=== PATIENT | male | born 1955 | race Caucasian/White ===

== ENCOUNTER → 2018-02-06 | Outpatient (CLI) | payer OTHER | END | disposition home or self-care (01) | LOC: LABPAT 17:13 | PROVIDERS: ATTEND Orthopaedic Surgery | DX: Z01.812 Encounter for preprocedural laboratory examination (principal) | CPT/HCPCS: 87070 ==

== ENCOUNTER 2018-02-13 05:40 | Day surgery (SDC) | payer OTHER ==
[2018-02-10 11:41] VITALS: BMI 32.3
--- NOTE | 2018-02-12 17:12 | HP ---
HISTORY AND PHYSICAL REASON FOR ADMISSION: Surgery is 02/13/2018. Stuart Julian is a 62-year-old patient seen with symptomatic left knee osteoarthritis. We discussed treatment options. He elected to proceed with left total knee arthroplasty. Consent regarding the procedure was obtained. Medical clearance was provided by Dr. Mari Elizalde. PAST MEDICAL HISTORY: Hypertension. PAST SURGICAL HISTORY: Left knee arthroscopy. MEDICATIONS: Amlodipine, losartan, Toprol. ALLERGIES: CLINORIL. SOCIAL HISTORY: Patient smokes half pack cigarettes daily. PHYSICAL EXAMINATION: Evaluation of the left knee is range of motion is negative to 120 degrees. There is tenderness along the medial joint line. There is a crepitus along the medial patellofemoral compartments range of motion. There is pain with patellofemoral compression. Ligaments stable. Hip rotation without pain. Distal neurovascular exam is intact. RADIOGRAPHS: Radiographs of the left knee reveal severe medial moderate to severe patellofemoral compartment osteoarthritis. IMPRESSION: 1. Left knee osteoarthritis. 2. Hypertension. 3. Tobacco use. PLAN: Left total knee arthroplasty. Surgery scheduled for 02/13/2018. MMODL / IJN: [id number] /
[~2018-02-13 05:40] MED LIST: ACETAMINOPHEN TAB 500 MG TAB PO ONE; DEXAMETHASONE SOD PHOSPHATE 10 MG/ML 1 ML VIAL IV ONE; LACTATED RINGERS 1,000 ML IV SCH; LIDOCAINE 1% 20 ML VIAL (10MG/ML) FOR IV START INTRADERMA PRN; MIDAZOLAM (PF) 2 MG/2 ML VIAL IV PRN; ONDANSETRON 4 MG/2 ML VIAL IVP ONE; TRANEXAMIC ACID 1,000 MG in SODIUM CHLORIDE 0.9% 50 ML IVPB ONE; ceFAZolin IN SWFI 2 GM/20 ML SYRINGE IVP ONE; fentaNYL (PF) 50 MCG/ML 2 ML AMP IV PRN
[2018-02-13] MEDS ORDERED: SUCCINYLCHOLINE CHLORIDE 100 MG/5 ML SYR IV ONE (07:27)
[2018-02-13] MEDS ORDERED: ROCURONIUM BROMIDE 10 MG/ML 10 ML VIAL IV ONE (07:27)
[2018-02-13] MEDS ORDERED: LIDOCAINE 1% INJ 10MG/ML (20 ML MDV) ONE (07:27)
[2018-02-13] MEDS ORDERED: NEOSTIGMINE 1 MG/ML 10 ML VIAL ONE (07:27)
[2018-02-13] MEDS ORDERED: MIDAZOLAM 2 MG/2 ML VIAL ONE (07:27)
[2018-02-13] MEDS ORDERED: GLYCOPYRROLATE 0.2 MG/ML 2 ML VIAL ONE (07:27)
[2018-02-13] MEDS ORDERED: HYDROmorphone (PF) 1 MG/ML ONE (07:27)
[2018-02-13] MEDS ORDERED: fentaNYL (PF) 50 MCG/ML 2 ML AMP ONE (07:27)
[2018-02-13] MEDS ORDERED: PROPOFOL 10 MG/ML 20 ML VIAL IV ONE (07:27)
[2018-02-13] MEDS ORDERED: ROPIVACAINE 246.25 MG, EPINEPHrine 0.5 MG, KETOROLAC 30 MG, cloNIDine HCL/PF 80 MCG, WA... MISCELLANE ONE ×5 (07:32)
[2018-02-13] MEDS ORDERED: ceFAZolin 3,000 MG in SODIUM CHLORIDE 0.9% IRRIGATIO 3,000 ML IRRIGATION ONE (08:12)
[2018-02-13] MEDS ORDERED: LACTATED RINGERS 1,000 ML IV ONE (09:13)
[2018-02-13] MEDS ORDERED: ONDANSETRON 4 MG/2 ML VIAL IVP PRN (09:29)
[2018-02-13] MEDS ORDERED: HYDROcodone/APAP 5-325MG 1 EACH TAB PO PRN ×2 (09:29)
[2018-02-13] MEDS ORDERED: HYDROmorphone 1 MG/ML 1 ML SYRINGE IVP PRN (09:29)
[2018-02-13] MEDS ORDERED: NALOXONE 0.4 MG/ML 1 ML VIAL IV PRN (09:29)
[2018-02-13] MEDS ORDERED: HYDROmorphone 0.5 MG/0.5 ML SYRINGE IVP PRN ×2 (09:29)
--- NOTE | 2018-02-13 09:29 | P.OP ---
Date of Procedure: 02/13/18 Preoperative Diagnosis: Left knee osteoarthritis Postoperative Diagnosis: Left knee osteoarthritis Procedure(s) Performed: Left total knee arthroplasty Implants: 1. Katelyn Attune size 8 left cruciate-retaining cemented femur 2. [place] Attune size 8 fixed bearing cemented tibial baseplate 3. Katelyn Attune size 8 5 mm fixed bearing polyethylene tibial insert 4. Katelyn Attune 41 mm all polyethylene cemented patella Anesthesia: GETA, regional (Adductor canal catheter), local Surgeon: Marcos Mendoza Vice President Of Development #1: Leonel Del Rosario Estimated Blood Loss (ml): 50 Pathology: other (Bone) Condition: stable Disposition: PACU Indications for Procedure: 62-year-old patient seen with progressive left knee pain. After treatment options discussed, he elected to proceed with total knee arthroplasty. Operative Findings: see description of procedure Description of Procedure: Patient was taken to the operative suite after having an adductor canal catheter placed by the department of anesthesia. Patient underwent a general anesthetic by the department of anesthesia. Patient was given preoperative IV intake antibiotics and TXA. A well-padded tourniquet was placed about the left lower extremity. The lower extremity was then prepped and draped in the normal sterile orthopedic fashion. The extremity was elevated, a tourniquet was insufflated to 300. A standard anterior incision was made sharply through skin. Dissection was taken down through the subcutaneous soft tissues down to the extensor mechanism. A medial arthrotomy was performed, patella was everted and knee was flexed. There was advanced osteoarthritis noted. I introduced my distal intramedullary femoral drill. I then introduced the distal femoral cutting jig. Greg LAM secured the cutting jig with 2 pins. I held retractors in position while Greg LAM performed the distal femoral resection through the guide area we now removed her distal femoral cutting guide. We now placed our 4-in-1 femoral cutting block and positioned and it was secured with 2 pins by Greg LAM while I held the block in position. The distal femoral finishing was now completed. A proximal tibial cutting guide was positioned. I held the guide in the appropriate position with both hands well Greg LAM inserted stabilizing pins into the guide. Proximal tibial cut was made. We now placed a trial femoral component into position, along with an appropriate size tibial tray and insert. We now took the knee through range of motion and had full extension good flexion and good overall soft tissue balance noted. The patella was everted and stabilized with 2 towel clips held by Greg LAM while I performed a flush with patellar quad tendon utilizing a fresh sawblade. We templated the patella, appropriate drill holes were made. An appropriate trial patella was positioned, knee was taken through full range of motion with the patella tracking very nicely. The trial patella was removed. Drill holes were made through the femoral component. All trial components were removed after marking off the appropriate rotation of the tibia. Retractors were now positioned along the proximal tibia. An appropriate keel punch was made with the appropriate size tibial guide by myself on Greg LAM assisted by holding retractors. At this point appropriate size implants were chosen and opened. The joint was irrigated copiously with pulse lavage mechanical irrigation. The posterior capsule was infiltrated with local analgesic. The wound was irrigated with pulse lavage mechanical irrigation. We mixed antibiotic methylmethacrylate. We placed the knee into flexion. We placed multiple retractors assisted by Greg LAM to expose the proximal tibia. Once the methyl methacrylate was ready, the tibial component was cemented into place removing any excess methylmethacrylate form by both myself and Greg LAM. The femoral component was cemented into place removing the removing any excess methylmethacrylate performed by both myself and Greg LAM. We then inserted the appropriate size polyethylene tibial insert. We made sure that it was locked into position. We took the knee into full extension, and then back in a flexion making sure we had removed any excess methylmethacrylate. The patellar component was then cemented down and secured with clamp. Excess methylmethacrylate removed. We kept the knee in full extension, patellar clamp in position until methylmethacrylate had hardened. Once it had hardened the patellar clamp was removed. The knee was taken through full range of motion. The patella tracked nicely. There was good soft tissue balancing. The tourniquet was now released. Additional hemostasis was achieved via electrocautery. A second gram of TXA was given. The wound again was irrigated with pulse lavage mechanical irrigation. The superficial soft tissues were infiltrated local analgesic. The extensor mechanism was repaired with Vicryl. We checked the repair with range of motion and it was stable. The subcutaneous soft tissues were repaired with Vicryl in layers. The skin was approximated with pernio/Dermabond. Sterile dressings were applied followed by loose web roll and Waqar bandage. The patient was transferred to a bed, and taken to recovery in stable and satisfactory condition. Greg LAM assisted with this complex procedure.
[2018-02-13] MEDS ORDERED: LACTATED RINGERS 1,000 ML IV SCH (09:30)
[2018-02-13 10:09] VITALS: TEMP 97.5
[2018-02-13] MEDS ORDERED: ROPIVACAINE 1,100 MG, SODIUM CHLORIDE 0.9% 500 ML 330 ML MISCELLANE PRN ×2 (10:14)
--- NOTE | 2018-02-13 10:32 | XR ---
EXAMINATION TYPE: XR knee limited LT DATE OF EXAM: 02/13/2018 CLINICAL HISTORY: Postoperative evaluation Two views of the left knee are submitted. Identified are changes of total knee arthroplasty with fem oral and tibial components appearing well seated. Postsurgical soft tissue changes are noted. Align ment is anatomic.
[2018-02-13] MEDS ORDERED: HYDROcodone/APAP 7.5-325MG 1 EACH TAB PO ONE (11:58)
[2018-02-13] MEDS ORDERED: ceFAZolin IN SWFI 2 GM/20 ML SYRINGE IVP ONE (13:30)
[2018-02-13 13:48] VITALS: BP 155/74; PULSE 66; RESP 18
--- NOTE | 2018-02-13 20:34 | P.ONQ ---
Anesthesiology Proc Note - PNB - Peripheral Nerve Block Performed Left Adductor Canal Infusion Time Out Performed: Yes Procedure Start Time: 06:53 Procedure Stop Time: 07:00 Indication: Acute Post-Operative Pain, Requested by physician Sedation Type: Sedate with meaningful contact maintained Preparation: Sterile Dressing Position: Supine Catheter: Indwelling Needle Types: On-Q Needle Size: 100mm (4") Needle Gauge: 21 Technique: Ultrasound Injectate: 0.5% Ropivacaine (see comment for volume) (ropi .5% 20cc) Blood Aspirated: No Pain Paresthesia on Injection Noted: No Resistance on Injection: Normal Events: Uneventful and Well Tolerated
== END 2018-02-13 13:54 | disposition home health service (06) ==
LOC: OR 05:40
PROVIDERS: ATTEND Orthopaedic Surgery
DX: M17.12 Unilateral primary osteoarthritis, left knee (principal); I10 Essential (primary) hypertension; J44.9 Chronic obstructive pulmonary disease, unspecified; N40.0 Benign prostatic hyperplasia without lower urinary tract symptoms; M54.16 Radiculopathy, lumbar region; Z87.891 Personal history of nicotine dependence; Z88.6 Allergy status to analgesic agent; Z79.899 Other long term (current) drug therapy
CPT/HCPCS: 97161; 88300; 73560; 27447; C1776; C1713; C1772; J2250 ×2; J0171; J1100; J2710; J2405; J0690 ×2; J2001; J3010; J1885; J1170; J2795; J0330; J2704; J0735

== ENCOUNTER 2018-02-16 08:16 | Emergency (ER) | payer OTHER ==
--- NOTE | 2018-02-16 08:55 | ED ---
General Adult HPI - General Chief complaint: Urogenital Stated complaint: FREQUENT URINATION Time Seen by Provider: 02/16/18 08:47 Source: patient, RN notes reviewed Mode of arrival: ambulatory Limitations: no limitations - History of Present Illness Initial comments: Patient 62-year-old male status post left knee replacement 3 days, presenting to the emergency room today with chief complaint of increased urinary frequency. Patient does admit that he does have a history of BPH. Patient states that after surgery was having difficult time voiding. He states he increase his fluids and started taking Flomax. He states he's been able to void but is only going small amounts and feels that he has to go every 15 minutes. Patient does admit some pressure in the lower abdomen. He states he feels like he is retaining. He denies any other complaints or symptoms. Patient denies any recent fever, chills, shortness of breath, chest pain, back pain, nausea or vomiting, numbness or tingling, dysuria or hematuria, headaches or visual changes, or any other complaints. - Related Data Home Medications Medication Instructions Recorded Confirmed Losartan/Hydrochlorothiazide 1 each PO DAILY 02/10/18 02/10/18 [Losartan-Hctz 100-25 mg Tab] Metoprolol Succinate (ER) [Toprol 100 mg PO DAILY 02/10/18 02/13/18 Xl] Potassium Chloride [Klor-Con 10] 10 meq PO DAILY 02/10/18 02/13/18 amLODIPine [Norvasc] 10 mg PO DAILY 02/10/18 02/10/18 Previous Rx's Medication Instructions Recorded Apixaban [Eliquis] 2.5 mg PO BID #30 tab 02/13/18 Cephalexin [Keflex] 500 mg PO Q6HR #12 cap 02/13/18 Docusate [Colace] 100 mg PO DAILY #30 capsule 02/13/18 HYDROcodone/APAP 7.5-325MG [[place] 1 - 2 each PO Q6HR PRN #56 tab 02/13/18 7.5] traMADol HCl [Ultram] 50 mg PO Q6H PRN #28 tab 02/13/18 Allergies Allergy/AdvReac Type Severity Reaction Status Date / Time sulindac [From Clinoril] Allergy Rash/Hives Verified 02/16/18 08:19 Review of Systems ROS Statement: Those systems with pertinent positive or pertinent negative responses have been documented in the HPI. ROS Other: All systems not noted in ROS Statement are negative. Past Medical History Past Medical History: Hypertension History of Any Multi-Drug Resistant Organisms: None Reported Past Surgical History: Hernia Repair, Joint Replacement, Tonsillectomy Additional Past Surgical History / Comment(s): L knee, Past Psychological History: No Psychological Hx Reported Smoking Status: Former smoker Past Alcohol Use History: None Reported Past Drug Use History: None Reported General Exam - General Exam Comments Initial Comments: General: The patient is awake and alert, in no distress, and does not appear acutely ill. Neck: The neck is supple, there is no tenderness or JVD. Cardiovascular: There is a regular rate and rhythm. No murmur, rub or gallop is appreciated. Respiratory: Lungs are clear to auscultation, respirations are non-labored, breath sounds are equal. No wheezes, stridor, rales, or rhonchi. Gastrointestinal: Soft, non-distended, non-tender abdomen without masses or organomegaly noted. There is no rebound or guarding present. No CVA tenderness. Musculoskeletal: Normal ROM, no tenderness. Neurological: A&O x 3. CN II-XII intact, There are no obvious motor or sensory deficits. Coordination appears grossly intact. Speech is normal. Skin: Skin is warm and dry and no rashes or lesions are noted. Psychiatric: Cooperative, appropriate mood & affect, normal judgment. Limitations: no limitations Course Vital Signs 02/16/18 08:19 Temperature 98.5 F Pulse Rate 74 Respiratory 18 Rate Blood Pressure 137/79 O2 Sat by Pulse 96 Oximetry Medical Decision Making - Medical Decision Making Patient's bladder scan revealed greater than 1 L. Weldon catheter was placed by nursing staff. Patient has had over a liter of output in his Weldon catheter bag. It was clamped off and reopened to have another 2-300 mL of output. Patient is doing well at this time. Will be changed over to a leg bag discharged home with Weldon catheter to follow-up with his urologist. He states he seen Dr. Cunningham in the past. - Lab Data Lab Results 02/16/18 Range/Units 09:05 Urine Color Yellow Urine Appearance Clear (Clear) Urine pH 6.5 (5.0-8.0) Ur Specific [place] 1.009 (1.001-1.035) Urine Protein 1+ H (Negative) Urine Glucose (UA) Negative (Negative) Urine Ketones Trace H (Negative) Urine Blood Negative (Negative) Urine Nitrite Negative (Negative) Urine Bilirubin Negative (Negative) Urine Urobilinogen <2.0 (<2.0) mg/dL Ur Leukocyte Esterase Negative (Negative) Urine RBC 1 (0-5) /hpf Urine WBC 1 (0-5) /hpf Urine Mucus Rare H (None) /hpf Disposition Clinical Impression: Urinary retention Disposition: HOME SELF-CARE Condition: Good Instructions: Urinary Retention in Men (ED) Additional Instructions: Please leave Weldon catheter in place until follow-up with urologist over the next 2-5 days. Return here to the emergency room if any symptoms increase or worsen or for any other concerns. Is patient prescribed a controlled substance at d/c from ED?: No Referrals: Will Elizalde MD [Primary Care Provider] - 1-2 days Jair Cunningham MD [STAFF PHYSICIAN] - 1-2 days Time of Disposition: 10:10
[2018-02-16 09:22] LABS: Appearance,Urine Clear (Clear); Bilirubin,Urine Negative (Negative); Blood,Urine Negative (Negative); Color,Urine Yellow; Glucose,Urine (UA) Negative (Negative); Ketones,Urine Trace (Negative); Leukocyte Esterase,Urine Negative (Negative); Mucus,Urine Rare /hpf; Nitrite,Urine Negative (Negative); PH, Urine 6.5 (5.0-8.0); Protein,Urine 1+ (Negative); RBC,Urine 1 /hpf (0-5); Specific Gravity,Urine 1.009 (1.001-1.035); Urobilinogen,Urine <2.0 mg/dL (<2.0); WBC,Urine 1 /hpf (0-5)
[2018-02-16 10:53] VITALS: BP 146/89; PULSE 87; RESP 20; TEMP 97.9
== END 2018-02-16 10:53 | disposition home or self-care (01) ==
LOC: EC 08:16
DX: R33.8 Other retention of urine (principal); N40.1 Benign prostatic hyperplasia with lower urinary tract symptoms; R35.0 Frequency of micturition; I10 Essential (primary) hypertension; Z87.891 Personal history of nicotine dependence; Z88.6 Allergy status to analgesic agent; Z79.899 Other long term (current) drug therapy; Z96.652 Presence of left artificial knee joint
CPT/HCPCS: 51702; 51798; 81001; 87086; 99284

== ENCOUNTER 2018-04-17 13:02 | Emergency (ER) | payer OTHER ==
[2018-04-17] MEDS ORDERED: HYDROcodone/APAP 5-325MG 1 EACH TAB PO STA (13:41)
--- NOTE | 2018-04-17 13:45 | ED ---
Lower Extremity Injury HPI - General Chief Complaint: Extremity Injury, Lower Stated Complaint: knee pain Time Seen by Provider: 04/17/18 13:33 Source: patient, EMS, RN notes reviewed Mode of arrival: EMS Limitations: physical limitation - History of Present Illness Initial Comments: 62-year-old male presents emergency Department chief complaint of left knee pain. Patient states that he had knee replacement [address] Mendoza. Patient states symptoms ice and states he felt like he hyperextended his knee or twisted it. Patient states she did not feel that it shifted though. Patient denies any paresthesias he does admit to increased swelling and discomfort. Patient denies any major head trauma, upper back or neck pain. Patient states her complaint is left knee pain. - Related Data Home Medications Medication Instructions Recorded Confirmed Losartan/Hydrochlorothiazide 1 each PO DAILY 02/10/18 04/17/18 [Losartan-Hctz 100-25 mg Tab] Metoprolol Succinate (ER) [Toprol 100 mg PO DAILY 02/10/18 04/17/18 Xl] amLODIPine [Norvasc] 10 mg PO DAILY 02/10/18 04/17/18 Finasteride [Proscar] 5 mg PO DAILY 04/17/18 04/17/18 Hydrocodone/Acetaminophen [Coffeen 1 tab PO Q6HR PRN 04/17/18 04/17/18 5-325] Ibuprofen [Motrin] 600 mg PO Q6HR PRN 04/17/18 04/17/18 Allergies Allergy/AdvReac Type Severity Reaction Status Date / Time sulindac [From Clinoril] Allergy Rash/Hives Verified 04/17/18 13:45 Review of Systems ROS Statement: Those systems with pertinent positive or pertinent negative responses have been documented in the HPI. ROS Other: All systems not noted in ROS Statement are negative. Past Medical History Past Medical History: Hypertension History of Any Multi-Drug Resistant Organisms: None Reported Past Surgical History: Hernia Repair, Joint Replacement, Tonsillectomy Additional Past Surgical History / Comment(s): L knee, Past Psychological History: No Psychological Hx Reported Smoking Status: Former smoker Past Alcohol Use History: None Reported Past Drug Use History: None Reported General Exam Limitations: physical limitation General appearance: alert, in no apparent distress Neck exam: Present: normal inspection, full ROM. Absent: tenderness, meningismus, lymphadenopathy Respiratory exam: Present: normal lung sounds bilaterally. Absent: respiratory distress, wheezes, rales, rhonchi, stridor Cardiovascular Exam: Present: regular rate, normal rhythm, normal heart sounds. Absent: systolic murmur, diastolic murmur, rubs, gallop, clicks Extremities exam: Present: other (Left knee there is moderate swelling, surgical scar noted well healed no erythema patient's legs neurovascular intact there is no focal tenderness that he has pain with range of motion of hip pain no left distal leg pain) Neurological exam: Present: alert, oriented X3, CN II-XII intact, reflexes normal. Absent: motor sensory deficit Skin exam: Present: warm, dry, intact, normal color. Absent: rash Course Vital Signs 04/17/18 04/17/18 13:12 14:03 Temperature 97.8 F Pulse Rate 69 72 Respiratory 18 18 Rate Blood Pressure 161/98 146/92 O2 Sat by Pulse 98 96 Oximetry - Reevaluation(s) Reevaluation #1: 04/17/18 14:45 Patient did not want IM injection IV injection of pain medications. Medical Decision Making - Medical Decision Making 62-year-old male presented to emergency Department for fall, left knee pain. Patient has acute fracture on the lateral prosthetic region. Case discussed with his orthopedic physician who recommends knee immobilizer and follow-up tomorrow with the clinic. Disposition Clinical Impression: Femur fracture, left Disposition: HOME SELF-CARE Condition: Stable Instructions (If sedation given, give patient instructions): Leg Fracture (ED) Additional Instructions: Please return to the Emergency Department if symptoms worsen or any other concerns. Is patient prescribed a controlled substance at d/c from ED?: No Referrals: Will Elizalde MD [Primary Care Provider] - 1-2 days Marcos Mendoza DO [Doctor of Osteopathic Medicine] - 1-2 days Time of Disposition: 15:07
--- NOTE | 2018-04-17 14:38 | XR ---
EXAMINATION TYPE: XR knee complete LT DATE OF EXAM: 04/17/2018 COMPARISON: 02/13/2018 HISTORY: 62-year-old male left knee pain after fall TECHNIQUE: 3 views FINDINGS: Images show left total knee arthroplasty. There is a bone fragment along the lateral aspect of the la teral femoral condyle appears displaced approximately 1.9 cm superiorly. Overlying soft tissue swelli ng. Underlying large knee joint effusion with anterior bulging of the extensor mechanism. Alignment g rossly anatomic. IMPRESSION: 1. Lateral sided periprosthetic fracture about the distal femoral component. Overlying soft tissue sw elling. 2. Large knee joint effusion.
[2018-04-17 15:29] VITALS: BP 127/82; PULSE 65; RESP 16; TEMP 97.3
== END 2018-04-17 15:28 | disposition home or self-care (01) ==
LOC: EC 13:02
DX: S72.402A Unspecified fracture of lower end of left femur, initial encounter for closed fracture (principal); M97.12XA Periprosthetic fracture around internal prosthetic left knee joint, initial encounter; I10 Essential (primary) hypertension; Z96.652 Presence of left artificial knee joint; Z87.891 Personal history of nicotine dependence; Z79.899 Other long term (current) drug therapy; Z88.6 Allergy status to analgesic agent; W00.0XXA Fall on same level due to ice and snow, initial encounter; Y92.89 Other specified places as the place of occurrence of the external cause
CPT/HCPCS: 73562; 99283; L1830

== ENCOUNTER 2018-04-21 14:20 | Day surgery (SDC) | payer OTHER ==
--- NOTE | 2018-04-20 10:57 | HP ---
HISTORY AND PHYSICAL REASON FOR ADMISSION: Surgery is 04/21/2018 Stuart Julian is a 62-year-old patient seen after a traumatic injury to his left knee. He was found to have a displaced lateral femoral condylar fracture. He has a history of total knee arthroplasty on 02/13/2018, which appears stable radiographically. I recommended open reduction and internal fixation of the lateral femoral condyle fracture. I discussed the procedure, risks, complications, and recovery. He was agreeable. Consent was obtained. PAST MEDICAL HISTORY: Hypertension. PAST SURGICAL HISTORY: Left total knee arthroplasty. MEDICATIONS: Amlodipine, losartan, Toprol, [place]. ALLERGIES: CLINORIL. SOCIAL HISTORY: He smokes 1/2 pack cigarettes daily. PHYSICAL EXAMINATION: Evaluation of the left knee: His range of motion is limited. His incision is well healed. He is tender along the lateral femoral condyle area. Homans and Francesco are negative. His distal neurovascular exam is intact. RADIOGRAPHS: Radiographs of the left knee revealed a lateral femoral condyle fracture with a stable- appearing total knee arthroplasty. IMPRESSION: 1. Left knee lateral femoral condyle periprosthetic fracture. 2. Left total knee arthroplasty. 3. Hypertension. 4. Tobacco use. PLAN: Open reduction, internal fixation left knee lateral femoral condyle fracture. Surgery scheduled for 04/21/2018. MMODL / IJN: [id number] /
[~2018-04-21 14:20] MED LIST changes: -ACETAMINOPHEN TAB 500 MG TAB PO ONE; -DEXAMETHASONE SOD PHOSPHATE 10 MG/ML 1 ML VIAL IV ONE; -LACTATED RINGERS 1,000 ML IV SCH; -LIDOCAINE 1% 20 ML VIAL (10MG/ML) FOR IV START INTRADERMA PRN; -MIDAZOLAM (PF) 2 MG/2 ML VIAL IV PRN; -ONDANSETRON 4 MG/2 ML VIAL IVP ONE; -TRANEXAMIC ACID 1,000 MG in SODIUM CHLORIDE 0.9% 50 ML IVPB ONE; -fentaNYL (PF) 50 MCG/ML 2 ML AMP IV PRN
[2018-04-21] MEDS ORDERED: LACTATED RINGERS 1,000 ML IV ONE ×5 (14:58→17:46)
[2018-04-21] MEDS ORDERED: LIDOCAINE 1% 20 ML VIAL (10MG/ML) FOR IV START INTRADERMA ONE (14:58)
[2018-04-21] MEDS ORDERED: fentaNYL (PF) 50 MCG/ML 2 ML AMP ONE (15:48)
[2018-04-21] MEDS ORDERED: LIDOCAINE 1% INJ 10MG/ML (20 ML MDV) ONE (15:48)
[2018-04-21] MEDS ORDERED: ePHEDrine SULFATE/0.9% NACL/PF 50 MG/5 ML SYRINGE IV ONE (15:48)
[2018-04-21] MEDS ORDERED: MIDAZOLAM 2 MG/2 ML VIAL ONE (15:48)
[2018-04-21] MEDS ORDERED: PROPOFOL 10 MG/ML 20 ML VIAL IV ONE (15:48)
[2018-04-21] MEDS ORDERED: SUCCINYLCHOLINE CHLORIDE 100 MG/5 ML SYR IV ONE (15:48)
[2018-04-21] MEDS ORDERED: ROPIVACAINE 5 MG/ML 30 ML VIAL MISCELLANE ONE (17:02)
[2018-04-21] MEDS ORDERED: HYDROmorphone 0.5 MG/0.5 ML SYRINGE IVP PRN ×2 (17:15)
[2018-04-21] MEDS ORDERED: HYDROcodone/APAP 5-325MG 1 EACH TAB PO PRN (17:15)
[2018-04-21] MEDS ORDERED: SENNOSIDES-DOCUSATE SODIUM 1 EACH TAB PO PRN (17:15)
[2018-04-21] MEDS ORDERED: HYDROmorphone 1 MG/ML 1 ML SYRINGE IVP PRN (17:15)
[2018-04-21] MEDS ORDERED: ONDANSETRON 4 MG/2 ML VIAL IVP PRN (17:15)
--- NOTE | 2018-04-21 17:15 | P.OP ---
Date of Procedure: 04/21/18 Preoperative Diagnosis: Displaced left knee periprosthetic lateral femoral condyle fracture Postoperative Diagnosis: Same Procedure(s) Performed: Open reduction and internal fixation left knee periprosthetic lateral femoral condyle fracture Implants: 2Synthes 60 millimeter 4.0 cannulated screws with washers Anesthesia: CHET local Surgeon: Marcos Mendoza [employer] Instrument Repairer #1: Leonel Del Rosario Estimated Blood Loss (ml): 20 Pathology: none sent Condition: stable Disposition: PACU Indications for Procedure: 62-year-old patient seen with a displaced left knee periprosthetic distal femoral lateral condyle fracture. I recommended open reduction and internal fixation. The patient was agreeable and consent was obtained. Operative Findings: see description of procedure Description of Procedure: The patient was taken to the operative suite. The patient underwent a general anesthetic by the department of anesthesia. Preoperative IV antibiotics were given. A well-padded tourniquet was placed proximal left thigh. The left lower extremity was then prepped and draped in the normal sterile orthopedic fashion. The extremity was elevated and the tourniquet was insufflated. C-arm was brought into the operative field to determine the area of the incision. Once ascertain the air the fracture a lateral incision was made sharply through skin. I made a longitudinal incision through the IT band. A was position to help with retraction. The C-arm was brought in. The fracture was somewhat comminuted. I was able to pull the fracture down in a better position. I then introduced 2 pins crossing the fracture. I checked the construct under AP and lateral operative imaging. We had improved alignment of the fracture. I then chose to60 mm 4.0 cannulated screws with washers partially threaded and introduced them over the guidepins and into the lateral femur which seemed to compress the fracture nicely. The guidepins were removed. We checked the construct under AP and lateral intraoperative imaging and noted adequate alignment of the fracture and adequate positioning of the internal fixation. The wound was irrigated. The IT band was repaired with #1 Vicryl. The subcu soft tissues repaired with 2-0 Vicryl. The skin is proximal skin ronn. I infiltrated the area with half percent plain ropivacaine totaling approximately 20 mL. Sterile dressings were applied. Sterile web roll was applied. The tourniquet was released with immediate capillary refill the extremity noted. Sterile Waqar bandages applied. Patient was placed into a knee immobilizer. The patient was awakened, transferred to a bed and recovery stable condition. Greg LAM assisted procedure.
[2018-04-21] MEDS: HYDROmorphone 1 MG/ML 1 ML SYRINGE IVP ONE ×5 (17:28→17:52)
[2018-04-21] MEDS: HYDROcodone/APAP 5-325MG 1 EACH TAB PO PRN (20:43)
[2018-04-21 22:06] VITALS: BMI 28.8
[2018-04-21] MEDS: LACTATED RINGERS 1,000 ML IV SCH (22:09)
--- NOTE | 2018-04-21 22:21 | FL ---
EXAMINATION TYPE: FL guidance operating room, XR knee limited LT DATE OF EXAM: 04/21/2018 CLINICAL HISTORY: Left knee prosthesis fracture. TECHNIQUE: Fluoroscopy. Limited intraoperative views left knee. COMPARISON: Left knee x-ray from 4 days ago.. FINDINGS: Fluoroscopic guidance was provided during open reduction internal fixation procedure perfo rmed by Dr. Mendoza. A total of approximately 15 seconds of fluoroscopic time was utilized during the procedure and 2 spot intraoperative images are acquired. Intraoperative images acquired show placement of fixating screws through a fracture of the distal lat eral femoral condyle near site of metallic prosthesis. IMPRESSION: As Above.
[2018-04-21] MEDS: ceFAZolin IN SWFI 2 GM/20 ML SYRINGE IVP SCH (23:20)
[2018-04-22] MEDS: LACTATED RINGERS 1,000 ML IV SCH (04:30)
[2018-04-22] MEDS: HYDROcodone/APAP 5-325MG 1 EACH TAB PO PRN ×2 (05:51→13:25)
[2018-04-22 07:46] VITALS: BP 145/86; PULSE 77; RESP 17; TEMP 99.2
[2018-04-22] MEDS: ceFAZolin IN SWFI 2 GM/20 ML SYRINGE IVP SCH (08:54)
[2018-04-22] MEDS ORDERED: METOPROLOL SUCCINATE (ER) 100 MG TAB.ER.24H PO SCH (09:00)
[2018-04-22] MEDS ORDERED: FINASTERIDE 5 MG TAB PO SCH (09:00)
[2018-04-22] MEDS ORDERED: ENOXAPARIN 40 MG/0.4 ML SYRINGE SQ SCH (09:00)
[2018-04-22] MEDS ORDERED: LOSARTAN-HCTZ 50-12.5 MG 1 EACH TAB PO SCH (09:00)
[2018-04-22] MEDS ORDERED: amLODIPine 10 MG TAB PO SCH (09:00)
--- NOTE | 2018-04-22 12:43 | P.PN ---
Subjective Progress Note Date: 04/22/18 Principal diagnosis: Status post ORIF left knee periprosthetic lateral femoral condyle fracture Patient evaluated at bedside today, his resting comfortably. He is utilizing the immobilizer at this time. Catheter still in place at this time. Denies any chest pain or shortness of breath. Objective - Vital Signs Vital signs: Vital Signs Temp 99.2 F 04/22/18 07:00 Pulse 77 04/22/18 08:00 Resp 17 04/22/18 08:00 BP 145/86 04/22/18 07:00 Pulse Ox 94 L 04/21/18 23:59 Intake & Output 04/21/18 04/22/18 04/22/18 18:59 06:59 18:59 Intake Total 1275 1780 450 Output Total 170 2300 950 Balance 1105 -520 -500 Intake: IV 1275 Intake, IV Titration 1000 Amount Lactated Ringers 1,000 ml 1000 @ 100 mls/hr IV .Q10H ANN Rx#:[id number] Oral 780 450 Output: Urine 150 2300 950 Uretheral ([place]) 2300 Estimated Blood Loss 20 Other: Voiding Method Indwelling Catheter Indwelling Catheter # Voids 1 - Exam Left lower extremity: Incision is clean, dry and intact, ronn in good position. No active drainage. Minimal soft tissue swelling. Sensory exam to light touch throughout extremities intact, dorsal pedis pulses 2+. Assessment and Plan Plan: Assessment: Postop day #1 status post ORIF left knee periprosthetic lateral femoral condyle fracture Plan: Pain control, will resume oral medication GI and DVT prophylaxis, aspirin 81 mg twice a day for 10 days Wound care instructions discussed Utilizing immobilizer, toe-touch weightbearing with walker/crutches We'll discontinue urinary catheter as it is possible, pending he is able to urinate, we'll discharge home today Time with Patient: Less than 30
--- NOTE | 2018-04-22 12:55 | P.CONS ---
History of Present Illness - Reason for Consult Consult date: 04/21/18 Medical management Requesting physician: Marcos Mendoza - Chief Complaint Left femur fracture, hypertension, BPH, - History of Present Illness 62-year-old male one of Dr. Elizalde's patient with past medical history of hypertension mild elevated cholesterol BPH and mild smoking who presented to [facility] on a fall on ice and felt like he hyperextended his knee or twisted it had severe pain and discomfort ended up coming to [facility] on 04/17/2018 by EMS with slight increased swelling pain and discomfort x-ray of the knee show a few more fracture of the left side. Patient had left total knee arthroplasty Dr. Mendoza two-month early. With the current complaint he was refer to see Dr. Mendoza an outpatient and schedule elective surgery today 04/21/2018. Review of Systems CONSTITUTIONAL: Well-developed no acute respiratory distress. EYES: No icterus sclerae, no conjunctivitis. EARS, NOSE, MOUTH, THROAT, and FACE: No sore throat, lymphadenopathy, carotid bruits or deformity. RESPIRATORY: No SOB cough or wheezes. CARDIOVASCULAR: No CP, Palpitation, PND, Orthopnea, or angina. GASTROINTESTINAL: No Abd pain, Nausea or vomiting, no Diarrhea or constipation, No GI Bleed, no distention or masses. GENITOURINARY: Negative for Hematuria or UTI, no kidney stones. INTEGUMENT/BREAST: Negative for any muscular injury with mild osteoarthritis.. HEMATOLOGIC/LYMPHATIC: Negative for bleed or purpura. MUSCULOSKELTAL: Slight pain and discomfort left knee area NEURLOGICAL: No LOC, Sz or syncope, blurred vision dizziness or abnormality.. BEHAVIORAL/PSYCH: Negative. ENDOCRINE: Negative. Past Medical History Past Medical History: Hypertension, Prostate Disorder Additional Past Medical History / Comment(s): left knee fx, in knee immobilizer on crutches History of Any Multi-Drug Resistant Organisms: None Reported Past Surgical History: Hernia Repair, Joint Replacement, Tonsillectomy Additional Past Surgical History / Comment(s): L knee replacement 02/13/18 Past Anesthesia/Blood Transfusion Reactions: Previous Problems w/ Anesthesia Additional Past Anesthesia/Blood Transfusion Reaction / Comm: had problems with urine retention post op and had to return to ER to be catherized Smoking Status: Former smoker Additional Past Alcohol Use History / Comment(s): Currently nonsmoker, no marijuana use, no illicit drug use. 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 - Past Family History Father Additional Family Medical History / Comment(s): Father from heart problems at agae 69. Mother Additional Family Medical History / Comment(s): Mother at age 58 from suicide. Brother(s) Additional Family Medical History / Comment(s): Patient is an only child. No children. Medications and Allergies Home Medications Medication Instructions Recorded Confirmed Type Losartan/Hydrochlorothiazide 1 each PO DAILY 02/10/18 04/18/18 History [Losartan-Hctz 100-25 mg Tab] Metoprolol Succinate (ER) [Toprol 100 mg PO DAILY 02/10/18 04/21/18 History Xl] amLODIPine [Norvasc] 10 mg PO DAILY 02/10/18 04/18/18 History Finasteride [Proscar] 5 mg PO DAILY 04/17/18 04/21/18 History HYDROcodone/APAP 7.5-325MG [Covel 1 tab PO Q6HR PRN 04/18/18 04/18/18 History 7.5-325] Aspirin [Adult Low Dose Aspirin EC] 81 mg PO BID #30 tablet. 04/22/18 Rx Allergies Allergy/AdvReac Type Severity Reaction Status Date / Time sulindac [From [place]] Allergy Rash/Hives Verified 04/21/18 14:38 Physical Exam Vitals: Vital Signs Temp Pulse Resp BP Pulse Ox 04/21/18 18:16 80 16 155/79 95 04/21/18 18:01 80 16 152/78 94 L 04/21/18 17:46 76 16 153/89 93 L 04/21/18 17:31 97 F L 80 16 143/84 100 04/21/18 17:16 97 F L 80 16 143/84 100 04/21/18 14:47 97.8 F 73 16 136/81 95 Intake and Output 04/21/18 04/21/18 04/21/18 06:59 14:59 22:59 Intake Total 100 1175 Output Total 170 Balance 100 1005 Intake: IV 100 1175 Output: Urine 150 Estimated Blood Loss 20 General Appearance: Alert, cooperative, no distress, appears stated age. Neck HEENT: Supple, no lymphadenopathy, no thyroid enlargement, no carotid bruits. Lungs: Clear to auscultation without crackles or wheezes no rhonchi, no deformity. Chest Wall: Chest wall normal expansion with deep inspiration no tenderness and no deformity was found on exam, no costochondral pain or discomfort. Heart: Regular rate and rhythm, S1, S2 normal, no murmur, rub or gallop. Back: Symmetric, no curvature, ROM normal, no CVA tenderness. Abdomen: Soft, non-tender, bowel sounds active all four quadrants, no masses, no organomegaly. Extremities: Left knee has slight swelling surgical site looks fine with no hematoma or bleeding no induration.. The scar tissue from the hardware it's only about 2 inches with no irritation or induration. Pulses: 2+ and symmetric. Skin: Skin color, texture, tugor normal, no rashes or lesions. Neurologic: Alert oriented x3 cranial nerves II through XII intact, no motor deficit, no abnormal balance or gait. Assessment and Plan Plan: 1 left femur fracture: Post ORIF with Dr. Mendoza, continue to watch patient hemodynamic status, continue control his pain, watch for any infection. Resume home meds continue DVT and GI prophylaxis. 2 hypertension: Has been doing well on losartan hydrochlorothiazide and metoprolol along with amlodipine resume home meds. 3 BPH: Patient has been on finasteride. 4 post recent left total knee arthroplasty: Fracture has taken effect close to the surgical site which with Dr. Mendoza has done the repair for it. 5 GI prophylaxis: Patient be started on Pepcid 20 mg daily. 6 DVT prophylaxis: Patient be on heparin subcutaneous when he is discharged from the hospital will continue orthopedic protocol. CODE STATUS: Full code. Dr. Mendoza thank you very much for the consult if I can be any further help to please let me know.
== END 2018-04-22 14:36 | disposition home health service (06) ==
LOC: OR 14:20 → 4SSUR 17:16 → OR 04-22 14:36
PROVIDERS: ATTEND Orthopaedic Surgery
DX: M97.12XA Periprosthetic fracture around internal prosthetic left knee joint, initial encounter (principal); S72.422A Displaced fracture of lateral condyle of left femur, initial encounter for closed fracture; X58.XXXA Exposure to other specified factors, initial encounter; I10 Essential (primary) hypertension; F17.210 Nicotine dependence, cigarettes, uncomplicated; N40.0 Benign prostatic hyperplasia without lower urinary tract symptoms; Z79.899 Other long term (current) drug therapy; Z79.82 Long term (current) use of aspirin; Z88.6 Allergy status to analgesic agent
CPT/HCPCS: 97162; 73560; 27514; S0138; J2250; J2001; J1650; J3010; J1170; J2795; J0330; J2704; J0690 ×2

== ENCOUNTER → 2018-09-24 | Outpatient (CLI) | payer OTHER ==
--- NOTE | 2018-09-24 09:54 | MR ---
EXAMINATION TYPE: MR shoulder RT wo con DATE OF EXAM: 09/24/2018 COMPARISON: Plain film 09/12/2018 HISTORY: Right shoulder pain TECHNIQUE: Multiplanar, multisequence imaging of the right shoulder is performed without contrast. FINDINGS: Rotator Cuff: There is a rotator cuff tear, supraspinatus tendon is retracted to the level of the acr omion. Infraspinatus tendon also shows at least a partial tear. Fluid signal is present in the subacr omial subdeltoid bursa. Acromioclavicular Joint: Hypertrophic changes are present but is a distal acromial spur, distal acrom ion is downturned Glenohumeral Joint: Intact Labrum: There is some intrinsic increased signal within the superior labrum, findings may represent d egenerative signal, superior labrum is somewhat irregular and, there may be fraying or partial tear Biceps Tendon: The long head of biceps is in normal location within bicipital groove. Bone marrow signal: Pseudocysts are present within the humeral head. Other: There is a joint effusion. Fluid signal present along the subscapularis musculotendinous junct ion, difficult to exclude ganglion cyst IMPRESSION: Rotator cuff tear. Correlate for impingement. Additional findings above.
== END | disposition home or self-care (01) ==
LOC: RADMRIMAIN 05:49
PROVIDERS: ATTEND Orthopaedic Surgery
DX: M75.101 Unspecified rotator cuff tear or rupture of right shoulder, not specified as traumatic (principal); R93.7 Abnormal findings on diagnostic imaging of other parts of musculoskeletal system

== ENCOUNTER 2018-11-19 05:33 | Day surgery (SDC) | payer OTHER ==
[2018-11-17 12:00] VITALS: BMI 31.5
--- NOTE | 2018-11-18 14:00 | HP ---
HISTORY AND PHYSICAL DATE OF SURGERY: 11/19/2018 Stuart Julian is a 63-year-old patient seen with progressive right shoulder pain. After having treatment options discussed with him, he elected to proceed with right shoulder arthroscopy. Consent regarding the procedure was obtained. PAST MEDICAL HISTORY: Hypertension. PAST SURGICAL HISTORY: Left total knee arthroplasty, ORIF femur fracture. DAILY MEDICATIONS: Amlodipine, losartan, Toprol. ALLERGIES: CLINORIL. SOCIAL HISTORY: Currently smokes 1/2 pack cigarettes daily. PHYSICAL EVALUATION OF RIGHT SHOULDER: Flexion 150 degrees, abduction 140 degrees, external rotation is 50 degrees with weakness, tenderness along the anterolateral acromion rotator cuff insertion site. Impingement sign is positive at 90. Drop-arm sign positive. Distal neurovascular exam intact. RIGHT SHOULDER RADIOGRAPHS: Demonstrated type 2 anterior acromion. Right shoulder MRI revealed a retracted rotator cuff tendon tear. IMPRESSION: 1. Right shoulder impingement with rotator cuff tear. 2. Right shoulder acromioclavicular joint osteoarthritis. 3. Hypertension. 4. Tobacco use. PLAN: Right shoulder arthroscopy with subacromial decompression, possible arthroscopic rotator cuff repair, probable Ramos procedure and debridement. MMODL / IJN: [id number] /
[2018-11-19] MEDS ORDERED: KETOROLAC 30 MG/ML 1 ML VIAL IVP SCH (05:54)
[2018-11-19] MEDS ORDERED: LIDOCAINE 1% 20 ML VIAL (10MG/ML) FOR IV START INTRADERMA PRN (05:54)
[2018-11-19] MEDS ORDERED: ONDANSETRON 4 MG/2 ML VIAL IVP PRN (05:54)
[2018-11-19] MEDS ORDERED: LACTATED RINGERS 1,000 ML IV SCH (05:54)
[2018-11-19] MEDS ORDERED: HYDROmorphone 0.5 MG/0.5 ML SYRINGE IVP PRN (05:54)
[2018-11-19] MEDS ORDERED: DEXAMETHASONE SOD PHOSPHATE 10 MG/ML 1 ML VIAL IV ONE (05:54)
[2018-11-19] MEDS ORDERED: ONDANSETRON 4 MG/2 ML VIAL IVP ONE (05:54)
[2018-11-19] MEDS ORDERED: MIDAZOLAM 2 MG/2 ML VIAL IV PRN (05:54)
[2018-11-19] MEDS ORDERED: fentaNYL (PF) 50 MCG/ML 2 ML AMP IVP ONE (06:45)
[2018-11-19] MEDS ORDERED: ROPIVACAINE 0.2%-NS ON-Q PUMP 1,090 MG, EMPTY PAIN BALL 1 EACH MISCELLANE PRN (07:26)
--- NOTE | 2018-11-19 07:29 | P.ANPRN ---
Procedure Note - Anesthesia - Nerve Block Performed Right Interscalene Infusion Time Out Performed: Yes Date of Procedure: 11/19/18 Procedure Start Time: 06:48 Procedure Stop Time: 06:59 Location of Patient Procedure: PreOp Indication: Acute Post-Operative Pain, Dx/Pain Location (Right Shoulder Pain), Requested by Surgeon Sedation Type: Sedate with meaningful contact maintained Preparation: Sterile Prep Position: Supine Catheter: Indwelling Needle Types: On-Q Needle Gauge: 21 Ultrasound used to visualize needle placement: Yes Ultrasound used to observe medication spread: Yes Injectate: 0.5% Ropivacaine (see comment for volume) (15ml) Blood Aspirated: No Pain Paresthesia on Injection Noted: No Resistance on Injection: Normal Image Stored and Saved: Yes Events: Uneventful and Well Tolerated
[2018-11-19] MEDS ORDERED: PROPOFOL 10 MG/ML 20 ML VIAL IV ONE (07:30)
[2018-11-19] MEDS ORDERED: GLYCOPYRROLATE 0.2 MG/ML 2 ML VIAL ONE (07:30)
[2018-11-19] MEDS ORDERED: SUCCINYLCHOLINE CHLORIDE 100 MG/5 ML SYR IV ONE (07:30)
[2018-11-19] MEDS ORDERED: LIDOCAINE 1% INJ 10MG/ML (20 ML MDV) ONE (07:30)
[2018-11-19] MEDS ORDERED: ePHEDrine SULFATE/0.9% NACL/PF 50 MG/5 ML SYRINGE IV ONE (07:30)
[2018-11-19] MEDS ORDERED: LACTATED RINGERS 1,000 ML IV ONE (07:51)
[2018-11-19 09:00] VITALS: RESP 16; TEMP 97.4
--- NOTE | 2018-11-19 09:05 | P.OP ---
Date of Procedure: 11/19/18 Preoperative Diagnosis: Right shoulder impingement Postoperative Diagnosis: 1. Right shoulder rotator cuff tear 2. Right shoulder impingement 3. Right shoulder acromioclavicular joint osteoarthritis 4. Right shoulder partial long head biceps tendon tear 5. Right shoulder superior labral tear Procedure(s) Performed: 1. Right shoulder arthroscopic rotator cuff repair 2. Right shoulder arthroscopic subacromial decompression 3. Right shoulder arthroscopic Ramos procedure 4. Right shoulder arthroscopic biceps tenotomy 5. Right shoulder arthroscopic debridement labral tear Implants: 44.75 Arthrex swivel lock anchors Anesthesia: GETA, regional (Interscalene block) Surgeon: Marcos Mendoza Plant Attendant #1: Leonel Del Rosario Estimated Blood Loss (ml): 10 Pathology: none sent Condition: stable Disposition: PACU Indications for Procedure: 63-year-old patient seen with progressive right shoulder pain. After treatment options were discussed, he elected to proceed with arthroscopy. Operative Findings: see description of procedure Description of Procedure: Patient underwent an interscalene catheter placement/block by department of anesthesia for postoperative pain management. The patient was then taken to the operative suite. The patient underwent a general anesthetic by the department of anesthesia. The patient was placed into a lateral position and secured. There was appropriate padding of the bony prominence. Right shoulder was then prepped and draped in normal sterile orthopedic fashion. We placed the extremity in 10 pounds of longitudinal traction. A posterior incision was now made for a posterior working portal site. The trocar and cannula were inserted into the glenohumeral joint. Arthroscopy was initiated. Spinal needle was now inserted anteriorly, to ascertain the anterior working portal site. An incision was now made in that area, a trocar was inserted followed by a probe. There was superficial tearing of the superior labrum. There was hyperemia and partial tearing long head biceps tendon. There is an area of grade 2 chondromalacia central portion glenoid fossa. The humeral head was unremarkable. The remainder labrum appeared stable. I performed an arthroscopic biceps tenotomy. I debrided that superficial labral tear getting down to stable labral tissue. The residual labrum was probed and found to be stable. Instruments now removed from glenohumeral joint. Utilizing the posterior working portal site, the trocar and cannula were inserted into the subacromial space. Arthroscopy initiated. I made an incision 2 fingerbreadths lateral to the acromion. I introduced my trocar followed by my ArthroCare ablator. I now began ablating thick subacromial bursal tissue, which exposed the undersurface of the anterior acromion. There was diminished subacromial space. There was a very prominent anterior acromion. A motorized bur was introduced and a subacromial decompression was performed. I also excised some osteophytes off the inferior aspect of the distal clavicle. The AC joint was visualized and noted to be fairly arthritic. The motorized bur was introduced in the anterior portal site and a Ramos procedure was performed without difficulty, decompressing the AC joint nicely. I turned my attention to the rotator cuff. There was a 2. 53 cm rotator cuff tear with an element of superior tissue delamination. I debrided the margins getting down to stable tendon tissue. I introduced my motorized bur and abraded the footprint area, getting some petechial bleeding. I now made an accessory portal site off the lateral aspect of the acromion. I punched 2 holes medial for medial row fixation with the assistance of Greg LAM carefully tapping the punch with a mallet as I held the punch and the camera. I now introduced both anchors into the pre- punched holes and Greg LAM tapped them with the mallet as I held anchors and the camera. Greg LAM now screwed the anchors in place a while I held the anchor guide and camera. All 8 limbs of suture were now passed through good bites of rotator cuff tendon. I did note 2 areas of potential dogears and passed 2 Arthrex suture limbs through that. I now punched 2 holes for lateral row fixation again I held the punch and camera while Greg LAM used a mallet to tap in the punch. We now passed sutures through both anchors and individually I introduced the anchors into the pre-punch holes I held the anchor guide in position with one hand holding the camera with the other hand while Greg LAM tensioned the sutures and screwed in the anchors one at a time. All residual suture limbs were now clipped. We had good compression of the tendon along the entire footprint. I injected 1 mL Renyte intra-articular. Instruments now removed from the portal sites. All portal sites were approximated with nylon suture. Sterile dressings were applied followed by a shoulder immobilizer. Leonel LAM assisted in this complex case. The patient was awakened, transferred to a bed, and taken to recovery in stable condition.
[2018-11-19 10:03] VITALS: BP 135/79; PULSE 59
== END 2018-11-19 10:41 | disposition home or self-care (01) ==
LOC: OR 05:33
PROVIDERS: ATTEND Orthopaedic Surgery
DX: M75.101 Unspecified rotator cuff tear or rupture of right shoulder, not specified as traumatic (principal); M75.41 Impingement syndrome of right shoulder; M19.011 Primary osteoarthritis, right shoulder; S46.111A Strain of muscle, fascia and tendon of long head of biceps, right arm, initial encounter; S43.431A Superior glenoid labrum lesion of right shoulder, initial encounter; X58.XXXA Exposure to other specified factors, initial encounter; M94.211 Chondromalacia, right shoulder; M25.711 Osteophyte, right shoulder; I10 Essential (primary) hypertension; Z87.891 Personal history of nicotine dependence; I44.7 Left bundle-branch block, unspecified; N40.0 Benign prostatic hyperplasia without lower urinary tract symptoms; Z82.49 Family history of ischemic heart disease and other diseases of the circulatory system; Z79.1 Long term (current) use of non-steroidal anti-inflammatories (NSAID); Z79.891 Long term (current) use of opiate analgesic; Z79.899 Other long term (current) drug therapy; Z88.6 Allergy status to analgesic agent
CPT/HCPCS: 64415; 76942; 29826; 29827; 29824; C1713 ×2; C1765; J2250; J1100; J0690; J2405; J2001; J3010; J0330; J2704; J2795

== ENCOUNTER → 2020-06-09 | Outpatient (CLI) | payer OTHER ==
[2020-06-09 09:37] LABS: Basophils # (A) 0.1 k/uL (0-0.2); Basophils % (A) 1 %; Eosinophils # (A) 0.1 k/uL (0-0.7); Eosinophils % (A) 2 %; HCT 44.3 % (39.0-53.0); HGB 14.9 gm/dL (13.0-17.5); Lymphocytes # (A) 1.2 k/uL (1.0-4.8); Lymphocytes % (A) 18 %; MCH 27.6 pg (25.0-35.0); MCHC 33.6 g/dL (31.0-37.0); MCV 82.1 fL (80.0-100.0); Mean Platelet Volume 7.4; Monocytes # (A) 0.4 k/uL (0-1.0); Monocytes % (A) 7 %; Neutrophils # (A) 4.8 k/uL (1.3-7.7); Neutrophils % (A) 71 %; Platelet Count 200 k/uL (150-450); RDW 14.1 % (11.5-15.5); WBC 6.7 k/uL (3.8-10.6)
[2020-06-09 10:09] LABS: INR 0.9 (<1.2); Prothrombin Time 10.2 sec (9.0-12.0)
== END | disposition home or self-care (01) ==
LOC: LABPAT 08:35
PROVIDERS: ATTEND Orthopaedic Surgery
DX: Z01.812 Encounter for preprocedural laboratory examination (principal); M16.11 Unilateral primary osteoarthritis, right hip
CPT/HCPCS: 36415; 80051; 85025; 85610; 87070; 93005

== ENCOUNTER 2020-06-20 06:05 | Day surgery (SDC) | payer OTHER ==
--- NOTE | 2020-06-19 12:05 | HP ---
HISTORY AND PHYSICAL REASON FOR ADMISSION: Surgery 06/20/2020 HISTORY OF PRESENT ILLNESS: Stuart Julian is a 65-year-old gentleman seen with symptomatic left hip osteoarthritis. We discussed options for treatment. He elected to proceed with left total hip arthroplasty via direct anterior approach. Consent was obtained. PAST MEDICAL HISTORY: Hypertension. SURGICAL HISTORY: Left total knee arthroplasty, ORIF femur fracture, shoulder arthroscopy. MEDICATIONS: Amlodipine, losartan, Toprol. ALLERGIES: CLINORIL. SOCIAL HISTORY: Denies tobacco use. PHYSICAL EXAMINATION: Evaluation of the left hip is diffuse tenderness about the hip girdle. There is very limited range of motion with severe pain of the left hip. Straight leg raise negative. Distal neurovascular exam is intact. RADIOGRAPHS: Radiographs of the left hip reveal severe osteoarthritic changes. IMPRESSION: 1. Left hip osteoarthritis. 2. Hypertension. PLAN: Direct anterior left total hip arthroplasty. Surgery 06/20/2020. MMODL / IJN: [id number] /
[~2020-06-20 06:05] MED LIST changes: +ACETAMINOPHEN TAB 500 MG TAB PO PRN; +MELOXICAM 7.5 MG TAB PO PRN; +ONDANSETRON 4 MG/2 ML VIAL IVP ONE; +ROPIVACAINE/EPI/CLONIDINE/KET 50 ML SYRINGE MISCELLANE PRN; +TRANEXAMIC ACID 1,000 MG in SODIUM CHLORIDE 0.9% 100 ML IVPB PRN; -ceFAZolin IN SWFI 2 GM/20 ML SYRINGE IVP ONE
[2020-06-20] MEDS ORDERED: HYDROmorphone 0.5 MG/0.5 ML SYRINGE IVP PRN ×2 (07:00→09:34)
[2020-06-20] MEDS: LACTATED RINGERS 1,000 ML IV SCH ×3 (07:08→21:26)
[2020-06-20] MEDS ORDERED: DEXAMETHASONE SOD PHOSPHATE 4 MG/ML 1 ML VIAL IVP ONE (07:15)
[2020-06-20] MEDS ORDERED: SODIUM CHLORIDE 0.9% 100 ML BAG ONE (07:26)
[2020-06-20] MEDS ORDERED: ePHEDrine SULFATE/0.9% NACL/PF 50 MG/5 ML SYRINGE IV ONE (07:26)
[2020-06-20] MEDS ORDERED: PROPOFOL 10 MG/ML 20 ML VIAL IV ONE (07:26)
[2020-06-20] MEDS ORDERED: fentaNYL (PF) 50 MCG/ML 2 ML AMP ONE (07:26)
[2020-06-20] MEDS ORDERED: MIDAZOLAM 2 MG/2 ML VIAL ONE (07:26)
[2020-06-20] MEDS ORDERED: TRANEXAMIC ACID 1,000 MG/10 ML VIAL ONE (07:26)
[2020-06-20] MEDS ORDERED: LACTATED RINGERS 1,000 ML IV ONE (08:53)
--- NOTE | 2020-06-20 09:27 | FL ---
EXAMINATION TYPE: FL fluoroscopy <1hr DATE OF EXAM: 06/20/2020 CLINICAL HISTORY: LEFT TOTAL HIP TECHNIQUE: Fluoroscopy. COMPARISON: None. FINDINGS: Left anterior hip. Dr. Mendoza 19 sec fl time. 2 images. IMPRESSION: As Above.
[2020-06-20] MEDS ORDERED: hydrOXYzine pamoate 25 MG CAP PO PRN (09:34)
[2020-06-20] MEDS ORDERED: HYDROcodone/APAP 5-325MG 1 EACH TAB PO PRN ×2 (09:34)
[2020-06-20] MEDS ORDERED: HYDROmorphone 0.2 MG/1 ML SYRINGE IVP PRN (09:34)
[2020-06-20] MEDS ORDERED: NALOXONE 0.4 MG/ML 1 ML VIAL IV PRN (09:34)
[2020-06-20] MEDS ORDERED: ONDANSETRON 4 MG/2 ML VIAL IVP PRN (09:34)
[2020-06-20] MEDS ORDERED: HYDROmorphone 1 MG/ML 1 ML SYRINGE IVP PRN (09:34)
--- NOTE | 2020-06-20 09:35 | P.OP ---
Date of Procedure: 06/20/20 Preoperative Diagnosis: Left hip osteoarthritis Postoperative Diagnosis: Left hip osteoarthritis Procedure(s) Performed: Direct anterior left total hip arthroplasty Implants: 1. Depuy Corail KA size 16 standard collar press-fit femoral stem 2. Depuy pinnacle 56 mm press-fit acetabular shell 3. Depuy pinnacle polyethylene acetabular liner neutral 36 mm ID 56 mm OD 4. Biolox delta ceramic femoral head +1.5 36 mm Anesthesia: local, spinal Surgeon: Marcos Mendoza Winch Stripper #1: Morgan Deleon Estimated Blood Loss (ml): 500 Pathology: other (Femoral head) Condition: stable Disposition: PACU Indications for Procedure: 65-year-old patient seen with symptomatic left hip osteoarthritis. After treatment options were discussed, he elected to proceed with total hip arthroplasty Operative Findings: See description of procedure Description of Procedure: The patient was taken to the operative suite. Patient underwent a spinal anesthetic by the department of anesthesia. Patient was then transferred to the [address] table. Patient was given preoperative IV antibiotics and TXA. Both lower extremities were placed in standard leg spars. The hip was then prepped and draped in the normal sterile orthopedic fashion. A standard anterior incision was made beginning 3 cm lateral and 1 cm distal to the ASIS extending 10 cm. Dissection was then carried down through the subcutaneous soft tissues down to the fascia overlying the tensor fascia blanco. An incision was now made through the fascia. Careful dissection was taken down exposing the tensor fascia blanco muscle. A Cobra retractor was now placed along the medial femoral neck and a second one along the lateral femoral neck. The venous circumflex vessels were now identified, cauterized and clipped. We identified the anterior hip capsule. An incision was made through the hip capsule along the lateral border. I performed a partial anterior capsulectomy. Retractors were now placed around the femoral neck itself. A femoral neck cut was now made with a sagittal saw. It was completed with an osteotome at the lateral neck area. The femoral head was now removed without difficulty. The extremity was now rotated to 60 of external rotation. It was locked in position. Residual labrum was now debrided out. Serial reaming was performed of the acetabulum while Morgan LAM assisted holding an anterior retractor for exposure. Once we reached the appropriate size and a trial was position and fit nicely. The appropriate size was now chosen opened and made available. It was introduced into the acetabulum without difficulty. The C-arm/fluoroscopy was now brought into the operative field. We made sure we had a true AP pelvic view. We now under direct C- arm/fluoroscopy introduced into the acetabular component with appropriate version and inclination. I held the cup in appropriate position well Morgan LAM used a mallet to seat the acetabular component. I noted the component now to be well seated and stable. Acetabular cup introduce her was removed. The C-arm was pulled back. An appropriate liner was introduced and clicked into position. It was felt to be stable. At this point retractors were removed. The extremity was now placed into 130 external rotation with no traction. The leg was now dropped to the ground and adducted. Appropriate retractors were now positioned along the proximal femur. We also placed our femoral look into position. Additional capsular releasing was performed to gain access to the proximal femur. We now used a box osteotome. A canal finder was now utilized. Serial broaching was now performed with the assistance of Morgan LAM tapping the broaches down with a mallet while held the broach in appropriate rotation and position. Note a fairly tight intramedullary canal and a performed some serial reaming. I then resumed broaching. This was done until we reached the appropriate size with good overall rotational stability. Appropriate calcar planing was performed. A trial head/neck was placed into position. The hip was now reduced. The C-arm/fluoroscopy was brought back into the operative field. I obtained an AP pelvis demonstrating good positioning of the lesser trochanters for leg length alignment. The trial components appeared well positioned as well. The C-arm/fluoroscopy was pulled back. Retractors were repositioned and the hip was dislocated. The leg was again taken down to the ground and adducted. Appropriate retractors were repositioned as well as the femoral hook. All trial components were removed. The femoral implant was opened along with the femoral head. The femoral implant was introduced on the appropriate handle into our pre-broached area. I held the component position well Morgan LAM used a mallet to seat the femoral component. The femoral component was now noted to be well seated and stable.. The femoral head was introduced with good positioning and fixation noted. Retractors were now removed. The hip was now reduced. There appeared be good positioning of the hip confirmed on intraoperative fluoroscopy. Spot films were obtained to document this. A second gram of TXA was given. The deep and superficial soft tissues were infiltrated with local analgesic. Bipolar cautery had been utilized intermittently through the procedure for hemostasis. The wound was irrigated copiously with pulse lavage mechanical irrigation. The fascia was repaired with Vicryl suture. The subcutaneous soft tissues were repaired in layers with Vicryl suture. The skin was approximated with pernio/Dermabond. Sterile dressings were applied. Patient was then awakened, transferred to a bed and taken to recovery in stable condition. Morgan LAM assisted with the complex procedure.
--- NOTE | 2020-06-20 14:31 | P.CONS ---
History of Present Illness - Reason for Consult Consult date: 06/20/20 Medical management Requesting physician: Marcos Mendoza - Chief Complaint Post left total hip arthroplasty - History of Present Illness HISTORY OF PRESENT ILLNESS: 65-year-old male one of Dr. Moser's patient with past medical history of hypertension and BPH who developed to have severe arthritis of the left hip mostly from [id number] for the last 5 years, has been having increased pain and limping become quite symptomatic. Patient seen Dr. Mendoza his orthopedics and end up recommending anterior approach left total hip arthroplasty which was done today successfully with no major complication. Patient had quite bed urinary retention from previous surgery was worried about pain control and urinary retention was admitted to the hospital for overnight stay. Patient is stable hemodynamically he still have no sensation around the surgical site all the way to the knee able to stand up and walk to the bathroom with the help. Will continue Flomax if patient continued to have any urinary retention we will titrate Flomax up to twice a day. REVIEW OF SYSTEMS: Constitutional: No fever, no chills, no night sweats. No weight change. No weakness, fatigue or lethargy. No daytime sleepiness. EENT: No headache. No blurred vision or double vision, no loss of vision. No loss of Hearing, no ringing in the ears, no dizziness. No nasal drainage or congestion. No epistaxis. No sore throat. Lungs: No shortness of breath, cough, no sputum production. No wheezing. Cardiovascular: No chest pain, no lower extremity edema. No palpitations. No paroxysmal nocturnal dyspnea. No orthopnea. No lightheadedness or dizziness. No syncopal episodes. Abdominal: No abdominal pain. No nausea, vomiting. No diarrhea. No constipation. No bloody or tarry stools.. No loss of appetite. Genitourinary: Positive BPH symptoms and history of urinary retention. Musculoskeletal: No myalgias. No muscle weakness, no gait dysfunction, no frequent falls. No back pain. No neck pain. Integumentary: No wounds, no lesions. No rash or pruritus. No unusual bruising. No change in hair or nails. Neurologic: No aphasia. No facial droop. No change in mentation. No head injury. No headache. No paralysis. No paresthesia. Psychiatric: No depression. No anxiety. No mood swings. Endocrine: No abnormal blood sugars. No weight change. No excessive sweating or thirst. No cold intolerance. 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 He does not use oxygen or CPAP at home does not use nebulizer. FAMILY HISTORY: His mother dying at age 58 with a suicide, father 69 from CAD. Patient was only child for his parents and he does not have any children. PHYSICAL EXAMINATION: Gen: This is mildly overweight in no acute respiratory distress HEENT: Head is atraumatic, normocephalic. Pupils equal, round. Sclerae is anicteric. NECK: Supple. No JVD. No lymphadenopathy. No thyromegaly. LUNGS: Clear to auscultation. No wheezes or rhonchi. No intercostal retractions. HEART: Regular rate and rhythm. No murmur. ABDOMEN: Soft. Bowel sounds are present. No masses. No tenderness. EXTREMITIES: No pedal edema. No calf tenderness. Incision on the left knee looks fine with no hematoma or bleeding no induration or redness no cough tenderness. NEUROLOGICAL: Patient is awake, alert and oriented x3. Cranial nerves 2 through 12 are grossly intact. ASSESSMENT AND PLAN: 1. Post left total hip arthroplasty: Hemodynamically stable continue home meds continue to watch patient's symptoms carefully patient to continue aspirin along with his Flomax metoprolol and losartan. GI, DVT and pulmonary prophylaxis. 2. History of hypertension: Has been doing well on metoprolol succinate 100 milligrams daily continue losartan 100 milligrams a day and amlodipine 10 mg daily as well. 3. BPH with history of urinary retention has been on Flomax 0.4 mg daily at bedtime if developed to have any mild symptoms patient day. 4. Pain control: Continue Dilaudid along with hydrocodone as needed. 5. DVT prophylaxis: Patient is on Lovenox 40 mg subcutaneous daily will continue patient on aspirin when his discharge. 6. GI prophylaxis: Patient be on Pepcid 20 mg daily. 11. COVID-19 testing. Was negative before surgery. CODE STATUS: Full code Dr. Mendoza thank you very much for the consult if I can be any further help to please let me know. Past Medical History Past Medical History: Hypertension, Prostate Disorder Additional Past Medical History / Comment(s): Hx fractures to left femur and left knee. History of Any Multi-Drug Resistant Organisms: None Reported Past Surgical History: Hernia Repair, Joint Replacement, Tonsillectomy Additional Past Surgical History / Comment(s): Left knee replacement, left leg surgery. Past Anesthesia/Blood Transfusion Reactions: Previous Problems w/ Anesthesia Additional Past Anesthesia/Blood Transfusion Reaction / Comm: Had problems with urine retention post op and had to return to ER to be catheterized. Past Psychological History: No Psychological Hx Reported Smoking Status: Former smoker Past Alcohol Use History: Rare Additional Past Alcohol Use History / Comment(s): Quit smoking 1 month ago, smoked 30 yrs, 1 pdd. Past Drug Use History: None Reported - Past Family History Father Additional Family Medical History / Comment(s): Father from heart problems at age 69. Mother Additional Family Medical History / Comment(s): Mother at age 58 from suicide. Brother(s) Additional Family Medical History / Comment(s): Patient is an only child. No children. Medications and Allergies Home Medications Medication Instructions Recorded Confirmed Type Metoprolol Succinate (ER) [Toprol 100 mg PO HS 02/10/18 06/20/20 History Xl] Ibuprofen [Motrin] 400 mg PO DAILY PRN 11/17/18 06/20/20 History Ascorbic Acid [Vitamin C] 500 mg PO DAILY 06/14/20 06/20/20 History Losartan Potassium 100 mg PO QAM 06/14/20 06/20/20 History Tamsulosin [Flomax] 0.4 mg PO HS 06/14/20 06/20/20 History Zinc 50 mg PO DAILY 06/14/20 06/20/20 History amLODIPine BESYLATE 10 mg PO QAM 06/14/20 06/20/20 History Allergies Allergy/AdvReac Type Severity Reaction Status Date / Time sulindac [From [place]] Allergy Rash/Hives Verified 06/20/20 06:46 Physical Exam Vitals: Vital Signs Temp Pulse Pulse Resp BP Pulse Ox 06/20/20 12:05 97.7 F 59 L 16 142/82 97 06/20/20 11:15 58 L 16 123/69 100 06/20/20 10:44 49 L 16 119/69 97 06/20/20 10:29 47 L 16 136/67 100 06/20/20 10:15 52 L 16 133/69 97 06/20/20 10:00 49 L 16 137/65 93 L 06/20/20 09:56 97.1 F L 53 L 16 141/66 94 L 06/20/20 06:54 97.7 F 61 16 173/91 98 Intake and Output 06/19/20 06/20/20 06/20/20 22:59 06:59 14:59 Intake Total 1250 Output Total 500 Balance 750 Intake: IV 1250 Output: Estimated Blood Loss 500 Other: Weight 100.3 kg 100.3 kg
--- NOTE | 2020-06-20 14:46 | XR ---
EXAMINATION TYPE: XR Hip Limited LT DATE OF EXAM: 06/20/2020 CLINICAL HISTORY: Left hip pain and osteoarthritis. TECHNIQUE: 2 AP portable views of left hip are obtained postoperatively. COMPARISON: None. FINDINGS: Metallic hardware from total left hip arthroplasty is seen and appears satisfactory in alig nment and position on frontal projection intraoperatively. IMPRESSION: As above.
[2020-06-20] MEDS ORDERED: TAMSULOSIN 0.4 MG CAP.ER.24H PO SCH (21:00)
[2020-06-20] MEDS ORDERED: SENNOSIDES-DOCUSATE SODIUM 1 EACH TAB PO SCH (21:00)
[2020-06-20] MEDS ORDERED: METOPROLOL SUCCINATE (ER) 100 MG TAB.ER.24H PO SCH (21:00)
[2020-06-20 23:27] VITALS: RESP 20
[2020-06-21 06:04] VITALS: BP 137/74; PULSE 60; TEMP 99.4
[2020-06-21] MEDS: LACTATED RINGERS 1,000 ML IV SCH ×2 (06:08)
[2020-06-21 07:23] LABS: Basophils % (A) 0 %; Eosinophils % (A) 0 %; HCT 38.1 % (39.0-53.0); HGB 12.4 gm/dL (13.0-17.5); Lymphocytes # (A) 1.2 k/uL (1.0-4.8); Lymphocytes % (A) 10 %; MCH 27.1 pg (25.0-35.0); MCHC 32.6 g/dL (31.0-37.0); MCV 83.4 fL (80.0-100.0); Mean Platelet Volume 7.8; Monocytes # (A) 0.7 k/uL (0-1.0); Monocytes % (A) 6 %; Neutrophils # (A) 9.7 k/uL (1.3-7.7); Neutrophils % (A) 83 %; Platelet Count 170 k/uL (150-450); RBC 4.57 m/uL (4.30-5.90); RDW 14.4 % (11.5-15.5); WBC 11.6 k/uL (3.8-10.6)
[2020-06-21] MEDS ORDERED: ASCORBIC ACID 500 MG TAB PO SCH (09:00)
[2020-06-21] MEDS ORDERED: MELOXICAM 7.5 MG TAB PO SCH (09:00)
[2020-06-21] MEDS ORDERED: ZINC SULFATE 220 MG CAP PO SCH (09:00)
[2020-06-21] MEDS ORDERED: LOSARTAN 50 MG TAB PO SCH (09:00)
[2020-06-21] MEDS ORDERED: ENOXAPARIN 40 MG/0.4 ML SYRINGE SQ SCH (09:00)
[2020-06-21] MEDS ORDERED: FAMOTIDINE 20 MG TAB PO SCH (09:00)
[2020-06-21] MEDS ORDERED: amLODIPine 10 MG TAB PO SCH (09:00)
--- NOTE | 2020-06-21 10:00 | P.DS ---
Providers Date of admission: 06/20/2020 Expected date of discharge: 06/21/20 Attending physician: Marcos Mendoza Consults: 06/20/20 09:34 Consult Physician Routine Consulting Provider: Will Elizalde Reason/Comments: Medical management Do you want consulting provider notified?: Yes Primary care physician: Will Elizalde Hospital Course: Date of admission: 06/20/2020 Date of discharge: 06/21/2020 Admission diagnosis: Left hip osteoarthritis Discharge diagnosis: Same Attending physician: Dr. Mendoza Surgical procedures: Left total hip arthroplasty Brief history: Patient is a 65-year-old male with a history of progressive primary left hip osteoarthritis. At this point patient has failed conservative treatment measures and has opted to proceed with a elective left total hip arthroplasty. Hospital course: Details of patient's surgery can be found in operative report. Patient tolerated the procedure well and was subsequently transported to orthopedic floor. Patient's orthopeidc and medical care was provided daily. Patient had daily laboratory tests performed for evaluation of overall blood counts. Patient had daily physical therapy to include strengthening range of motion as well as education with walker ambulation. Patient was treated with Lovenox for their postoperative DVT prophylaxis during their inpatient stay. Patient was noted to have a relatively uneventful postoperative course. Patient reported satisfactory pain control with oral pain medications by postoperative day 1. Patient showed satisfactory progress with physical therapy. Patient moved steadily through the program and had no difficulty meeting the goals by postoperative day 1. Given patient's otherwise satisfactory course and having met physical therapy goals, plan is to discharge patient home on postoperative day 1. Discharge condition/disposition: Patient will be discharged home in stable condition. Discharge medications: Instructions are given on resumption of patient's normal daily medications per primary care recommendation, in addition patient will be prescribed [place] 7.5 mg/325 mg; Colace 100 mg; aspirin 81 mg.. Discharge instructions: 1. Wound care and infection precautions, keep incision dry and covered while showering, no lotions, creams, moisturizers. No soaking, tubs, pools, hottubs. Do not scrub over the incision. 2. Weight-bear as tolerated with walker / cane until follow-up. 3. Ice and elevate when necessary. Do not exceed 20 minutes per hour with ice pack. 4. Utilize compression sleeve until seen at first follow up appointment. 5. Visiting nursing care. 6. Home physical therapy. 7. Pain meds and anticoagulants per prescription. 8. Pain medication has potential to cause constipation. Increase oral fluid and fiber intake. Contact primary care provider if you have not had a bowel movement within 48 hours after discharge 9. No anti-inflammatory medication until discussed at first post operative visit, this including Motrin, Aleve, Mobic, Diclofenac. 10. Follow up in office at 2 weeks postop with Greg Del Rosario PA-C / Morgan Deleon PA-C 11. Follow up with your primary care doctor 7-10 days after discharge. 12. Contact [facility] with any questions, . Assessment: Left hip osteoarthritis Procedures: Left total hip arthroplasty Patient Condition at Discharge: Good Plan - Discharge Summary Discharge Rx Participant: No New Discharge Prescriptions: New Aspirin [Adult Low Dose Aspirin EC] 81 mg PO BID #60 tablet. Docusate [Colace] 100 mg PO DAILY #30 capsule HYDROcodone/APAP 7.5-325MG [[place] 7.5] 1 each PO Q6HR PRN #28 tab PRN Reason: Pain Discontinued Ibuprofen [Motrin] 400 mg PO DAILY PRN PRN Reason: Pain No Action Metoprolol Succinate (ER) [Toprol Xl] 100 mg PO HS amLODIPine BESYLATE 10 mg PO QAM Tamsulosin [Flomax] 0.4 mg PO HS Zinc 50 mg PO DAILY Losartan Potassium 100 mg PO QAM Ascorbic Acid [Vitamin C] 500 mg PO DAILY Discharge Medication List Metoprolol Succinate (ER) [Toprol Xl] 100 mg PO HS 02/10/18 [History] Ascorbic Acid [Vitamin C] 500 mg PO DAILY 06/14/20 [History] Losartan Potassium 100 mg PO QAM 06/14/20 [History] Tamsulosin [Flomax] 0.4 mg PO HS 06/14/20 [History] Zinc 50 mg PO DAILY 06/14/20 [History] amLODIPine BESYLATE 10 mg PO QAM 06/14/20 [History] Aspirin [Adult Low Dose Aspirin EC] 81 mg PO BID #60 tablet. 06/21/20 [Rx] Docusate [Colace] 100 mg PO DAILY #30 capsule 06/21/20 [Rx] HYDROcodone/APAP 7.5-325MG [[place] 7.5] 1 each PO Q6HR PRN #28 tab 06/21/20 [Rx] Follow up Appointment(s)/Referral(s): Leonel Del Rosario PAC [PHYSICIAN PRODUCT TRAINER] - 2 Weeks Patient Instructions/Handouts: Total Hip Replacement (GEN) Activity/Diet/Wound Care/Special Instructions: Orthopedic Discharge Instructions: 1. Wound care and infection precautions, keep incision dry and covered while showering, no lotions, creams, moisturizers. No soaking, pools, hot tubs. Do not scrub over incision. 2. Weight-bear as tolerated with walker / cane until follow-up. 3. Ice and elevate when necessary. Do not exceed 20 minutes per hour with ice pack. 4. Utilize compression sleeve until seen at first follow up appointment. 5. Pain meds and anticoagulants per prescription. 6. Pain medication has potential to cause constipation. Increase oral fluid and fiber intake. Contact primary care provider if you have not had a bowel movement within 48 hours after discharge. 7. No anti-inflammatory medication until discussed at first post operative visit, this including Motrin, Aleve, Mobic, Diclofenac. 8. Follow up in office at 2 weeks postop with Greg Del Rosario PA-C / Morgan Deleon PA-C 9. Follow up with your primary care doctor 7-10 days after discharge. 10. Contact [facility] with any questions, . Keep silver foam dressing on for 7-10 days. While showering, cover dressing with Saran wrap for plastic bag. Silver foam dressing may be removed after 7-10 days. Discharge Disposition: HOME WITH HOME HEALTH SERVICES
--- NOTE | 2020-06-21 13:17 | P.PN ---
Subjective Progress Note Date: 06/21/20 HISTORY OF PRESENT ILLNESS: 65-year-old male one of Dr. Moser's patient with past medical history of hypertension and BPH who developed to have severe arthritis of the left hip mos tly from [id number] for the last 5 years, has been having increased pain and limping become quite symptomatic. Patient seen Dr. Mendoza his orthopedics and end up recommending anterior approach left total hip arthroplasty which was done today successfully with no major complication. Patient had quite bed urinary retention from previous surgery was worried about pain control and urinary retention was admitted to the hospital for overnight stay. Patient is stable hemodynamically he still have no sensation around the surgical site all the way to the knee able to stand up and walk to the bathroom with the help. Will continue Flomax if patient continued to have any urinary retention we will titrate Flomax up to twice a day. 06/21: Patient is doing very well was able to ambulate and walk, no urinary retention, pain is under control hydrocodone. Anticoagulation will be treated with aspirin 81 mg twice a day. REVIEW OF SYSTEMS: Constitutional: No fever, no chills, no night sweats. No weight change. No weakness, fatigue or lethargy. No daytime sleepiness. EENT: No headache. No blurred vision or double vision, no loss of vision. No loss of Hearing, no ringing in the ears, no dizziness. No nasal drainage or congestion. No epistaxis. No sore throat. Lungs: No shortness of breath, cough, no sputum production. No wheezing. Cardiovascular: No chest pain, no lower extremity edema. No palpitations. No paroxysmal nocturnal dyspnea. No orthopnea. No lightheadedness or dizziness. No syncopal episodes. Abdominal: No abdominal pain. No nausea, vomiting. No diarrhea. No constipation. No bloody or tarry stools.. No loss of appetite. Genitourinary: Positive BPH symptoms and history of urinary retention. Musculoskeletal: No myalgias. No muscle weakness, no gait dysfunction, no frequent falls. No back pain. No neck pain. Integumentary: No wounds, no lesions. No rash or pruritus. No unusual bruising. No change in hair or nails. Neurologic: No aphasia. No facial droop. No change in mentation. No head injury. No headache. No paralysis. No paresthesia. Psychiatric: No depression. No anxiety. No mood swings. Endocrine: No abnormal blood sugars. No weight change. No excessive sweating or thirst. No cold intolerance. PHYSICAL EXAMINATION: Gen: This is mildly overweight in no acute respiratory distress HEENT: Head is atraumatic, normocephalic. Pupils equal, round. Sclerae is anicteric. NECK: Supple. No JVD. No lymphadenopathy. No thyromegaly. LUNGS: Clear to auscultation. No wheezes or rhonchi. No intercostal retractions. HEART: Regular rate and rhythm. No murmur. ABDOMEN: Soft. Bowel sounds are present. No masses. No tenderness. EXTREMITIES: No pedal edema. No calf tenderness. Incision on the left knee looks fine with no hematoma or bleeding no induration or redness no cough tender ness. NEUROLOGICAL: Patient is awake, alert and oriented x3. Cranial nerves 2 through 12 are grossly intact. ASSESSMENT AND PLAN: 1. Post left total hip arthroplasty: Hemodynamically stable continue home meds continue anticoagulation with aspirin 81 mg twice a day continue pain control with hydrocodone orally patient is stable will be discharged today. 2. History of hypertension: Has been doing well on metoprolol succinate 100 milligrams daily continue losartan 100 milligrams a day and amlodipine 10 mg daily as well. 3. BPH with history of urinary retention has been on Flomax 0.4 mg daily at bedtime if developed to have any mild symptoms patient day. 4. Pain control: Continue Dilaudid along with hydrocodone as needed. 5. DVT prophylaxis: Patient is on Lovenox 40 mg subcutaneous daily will continue patient on aspirin when his discharge. 6. GI prophylaxis: Patient be on Pepcid 20 mg daily. Discharge planning: Patient stable medically for discharge today. Objective - Vital Signs Vital signs: Vital Signs Temp 99.4 F 06/21/20 05:00 Pulse 60 06/21/20 05:00 Resp 20 06/21/20 05:00 BP 137/74 06/21/20 05:00 Pulse Ox 94 L 06/21/20 05:00 Intake & Output 06/20/20 06/21/20 06/21/20 18:59 06:59 18:59 Intake Total 2150 1000 Output Total 500 Balance 1650 1000 Weight 100.3 kg Intake: IV 1250 Intake, IV Titration 900 800 Amount Lactated Ringers 1,000 ml 800 750 @ 100 mls/hr IV .Q10H ANN Rx#:[id number] ceFAZolin 2 gm In Sodium 100 50 Chloride 0.9% 50 ml @ 100 mls/hr IVPB Q8HR [facility] Rx# :[id number] Oral 200 Output: Estimated Blood Loss 500 Other: Voiding Method Toilet # Voids 3 - Labs CBC & Chem 7: 06/21/20 06:38 Labs: Abnormal Lab Results - Last 24 Hours (Table) 06/21/20 Range/Units 06:38 WBC 11.6 H (3.8-10.6) k/uL Hgb 12.4 L (13.0-17.5) gm/dL Hct 38.1 L (39.0-53.0) % Neutrophils # 9.7 H (1.3-7.7) k/uL
== END 2020-06-21 13:02 | disposition home health service (06) ==
LOC: OR 06:05 → 5NMEDONC 09:25 → OR 06-21 13:02
PROVIDERS: ATTEND Orthopaedic Surgery
DX: M16.12 Unilateral primary osteoarthritis, left hip (principal); I10 Essential (primary) hypertension; N40.1 Benign prostatic hyperplasia with lower urinary tract symptoms; R33.8 Other retention of urine; E66.3 Overweight; Z68.32 Body mass index [BMI] 32.0-32.9, adult; Z79.01 Long term (current) use of anticoagulants; Z79.899 Other long term (current) drug therapy; Z82.49 Family history of ischemic heart disease and other diseases of the circulatory system; Z87.891 Personal history of nicotine dependence; Z20.822 Contact with and (suspected) exposure to COVID-19; Z79.1 Long term (current) use of non-steroidal anti-inflammatories (NSAID); Z79.82 Long term (current) use of aspirin
CPT/HCPCS: 27130; 93005; 97110; 97161; 86900; 86901; 85025; 86850; 88300; 87635; 76000; 73501; C1776; J2250; J1100; J0690 ×2; J2405; J1650; J3010; J2704

== ENCOUNTER → 2021-07-11 | Outpatient (CLI) | payer MEDICARE ==
--- NOTE | 2021-07-11 16:07 | CT ---
EXAMINATION TYPE: CT chest w con DATE OF EXAM: 07/11/2021 COMPARISON: Chest x-ray 06/29/2021 HISTORY: lung nodule CT DLP: 473.7 mGycm, Automated exposure control for dose reduction was used. CONTRAST: Performed injected with 100 mL of Isovue 300. TECHNIQUE: Axial images were obtained at 5 mm thick sections. Reconstructed images are reviewed on RE[employer] computer in the coronal plane. FINDINGS: Portion of the thyroid visualized is normal. Some minimal posterior right apex increased lung markings are present measuring 0.5 cm in size. Serie s 4 image 10 Ill-defined 0.5 cm density is in the right mid lung anteriorly. Series 4 image 35. There is a 0.4 cm nodularity along the anterior right mid lung. Series 4 image 41. There is a well circumscribed rounded nodularity measuring 1.9 x 2.2 cm in the posterior left lung ba se. This area appears to correspond to the findings on chest x-ray. PET/CT can be utilized for additi onal evaluation. No enlarged mediastinal or hilar adenopathy is evident. Small right hilar nodes are not excluded. The ascending aorta diameter at the level of the main pulmonary artery is 4.1 cm. The main pulmonary ar jeanine diameter at the bifurcation is 2.[address] sections are obtained through the upper abdomen. Abdomen is essentially unremarkable. IMPRESSIONS: 1. 2 cm well-circumscribed nodule left lung base. PET/CT can be utilized for additional evaluation.
== END | disposition home or self-care (01) ==
LOC: RADCTMAIN 14:04
PROVIDERS: ATTEND Internal Medicine Critical Care Medicine
DX: R91.1 Solitary pulmonary nodule (principal)
CPT/HCPCS: 82565; 84520; 71260; 36415; Q9967

== ENCOUNTER → 2021-07-21 | Outpatient (CLI) | payer MEDICARE ==
--- NOTE | 2021-07-25 05:37 | PE ---
EXAMINATION TYPE: PET CT fusion skull to thigh DATE OF EXAM: 07/21/2021 COMPARISON: Chest CT July 11, 2021 HISTORY: Solitary pulmonary nodule, abnormal CT TECHNIQUE: Following the intravenous administration of 12.39 mCi of F-18 FDG, whole body images are performed from the skull base to the midthigh. Images are reviewed on the computer in the coronal, a xial, and sagittal planes. Reconstructed rotating images are created on independent workstation and reviewed on the computer. A localization and attenuation correction CT is performed in conjunction with the PET scan. Blood glucose level equals 107 SCAN: Initial Scan FINDINGS: SKULL BASE AND NECK: No areas of abnormal hypermetabolic uptake. CHEST, MEDIASTINUM, AND HILAR REGION: There is persistent 2.2 x 1.7 cm low dense left lower lobe nodu le axial image 115, it is ametabolic. No areas of abnormal hypermetabolic uptake are present. ABDOMEN AND PELVIS: No areas of abnormal hypermetabolic uptake. No adrenal masses. OSSEOUS STRUCTURES: No areas of abnormal hypermetabolic uptake. OTHER CT: Small degree of flame-shaped left-sided subareolar gynecomastia. Enlarged prostate consiste nt with BPH. Sigmoid colonic diverticula are present. Metallic hardware from left hip arthroplasty ca uses streak artifact limiting evaluation of pelvic structures. IMPRESSION: No abnormal hypermetabolic uptake in the 2.2 cm left lower lobe nodule to suggest maligna ncy.
== END | disposition home or self-care (01) ==
LOC: RADPETMAIN 08:16
PROVIDERS: ATTEND Internal Medicine Critical Care Medicine
DX: R91.8 Other nonspecific abnormal finding of lung field (principal); R91.1 Solitary pulmonary nodule
CPT/HCPCS: 78815; A9552

== ENCOUNTER → 2021-10-31 | Outpatient (CLI) | payer MEDICARE ==
--- NOTE | 2021-11-03 10:22 | CT ---
EXAMINATION TYPE: CT chest wo con DATE OF EXAM: 11/01/2021 COMPARISON: 07/11/2021 HISTORY: Left lower lobe pulmonary nodule Automated exposure control for dose reduction was used. CONTRAST: CT scan of the chest is performed without contrast. FINDINGS: LUNGS: Again noted is left lower lobe pulmonary nodule which has decreased slightly in size and measu res 2.0 x 1.7 cm versus 2.2 x 1.9 cm previously. No new nodules are identified. The lungs are otherwi se clear. No infiltrate, volume loss or effusion. MEDIASTINUM: There are no greater than 1 cm hilar or mediastinal lymph nodes. No pericardial effusi on is seen. Thoracic aorta is of normal caliber. The heart is not enlarged. UPPER ABDOMEN: No significant abnormality appreciated. OTHER: No additional significant abnormality is seen. IMPRESSION: 1. Left lower lobe pulmonary nodule is slightly smaller in size. Continued follow-up is advised.
== END | disposition home or self-care (01) ==
LOC: RADCTMAIN 12:43
PROVIDERS: ATTEND Internal Medicine Critical Care Medicine
DX: R91.1 Solitary pulmonary nodule (principal)
CPT/HCPCS: 71250

== ENCOUNTER → 2022-05-10 | Outpatient (CLI) | payer MEDICARE ==
[2022-05-10 09:36] VITALS: BP 146/79; PULSE 69; RESP 16; TEMP 98.1
--- NOTE | 2022-05-10 09:48 | P.GSHP ---
History of Present Illness H&P Date: 05/10/22 Stuart is a 66 year old white male seen in consultation for Dr. Elizalde regarding possible bilateral gynecomastia. He has noted a bilateral pain behind the nipple areolar complexes for approximately 6 months. He has not noted any new recent changes in lumps or masses in his breast. He has not noted any testicular masses or lumps. The patient is on Proscar for approximately 2 years and is on spironolactone. His dose of spironolactone was decreased secondary to the breast discomfort but this has not made a difference. Testosterone test done, Caffeine:2 cups/day nicotine: stopped 4 months ago used to smoke 1 PPD for 30 years chocolate: occasional Medications: proscar, and spironolactone Family History: none Surgical History: left knee replacement left hip replacement epidural for back pain left shoulder surgery Medical History: HTN Benign prostatic hypertrophy Social History: nicotine: As above Alcohol: 2 beer/week drugs: none Past Medical History Past Medical History: Hypertension, Prostate Disorder Additional Past Medical History / Comment(s): left knee fx, in knee immobilizer on crutches History of Any Multi-Drug Resistant Organisms: None Reported Past Surgical History: Hernia Repair, Joint Replacement, Tonsillectomy Additional Past Surgical History / Comment(s): L knee replacement 02/13/18 Past Anesthesia/Blood Transfusion Reactions: Previous Problems w/ Anesthesia Additional Past Anesthesia/Blood Transfusion Reaction / Comment(s): Had problems with urine retention post op and had to return to ER to be catheterized. Additional Past Alcohol Use History / Comment(s): Currently nonsmoker, no marijuana use, no illicit drug use. 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 - Past Family History Father Additional Family Medical History / Comment(s): Father from heart problems at age 69. Mother Additional Family Medical History / Comment(s): Mother at age 58 from suicide. Brother(s) Additional Family Medical History / Comment(s): Patient is an only child. No children. Medications and Allergies Home Medications Medication Instructions Recorded Confirmed Type Metoprolol Succinate (ER) [Toprol 100 mg PO HS 02/10/18 05/10/22 History Xl] Ascorbic Acid [Vitamin C] 500 mg PO DAILY 06/14/20 05/10/22 History Tamsulosin [Flomax] 0.4 mg PO HS 06/14/20 05/10/22 History Zinc 50 mg PO DAILY 06/14/20 05/10/22 History amLODIPine BESYLATE 10 mg PO QAM 06/14/20 05/10/22 History Finasteride [Proscar] 5 mg PO DAILY 05/10/22 05/10/22 History Irbesartan 300 mg PO DAILY 05/10/22 05/10/22 History Multivitamin [Multivitamins Adult 1 tablet PO DAILY 05/10/22 05/10/22 History Gummies] Spironolactone 25 mg PO DAILY 05/10/22 05/10/22 History Allergies Allergy/AdvReac Type Severity Reaction Status Date / Time sulindac [From [place]] Allergy Rash/Hives Verified 05/10/22 09:14 Surgical - Exam - General no distress - Eyes normal ocular movement - Neck trachea midline - Respiratory normal respiratory effort, clear to auscultation - Cardiovascular Heart Sounds: normal: S1, S2 - Abdomen Abdomen: soft, non tender, no guarding, no rigid, no rebound - Genitourinary no testicular masses noted testicles present - Integumentary Psoriasis mid back - Musculoskeletal normal gait - Psychiatric oriented to time, oriented to person, oriented to place, speech is normal, memory intact Breast examination: Right breast: fullness behind nipple areolar complex consistent with gynecomastia, no dominant masses or nodules of concern Right axilla: No adenopathy of concern Left breast: Changes posterior to the nipple areolar complex consistent with gynecomastia, no dominant masses or nodules of concern Left axilla: No adenopathy of concern Results Mammogram reviewed Assessment and Plan Assessment: Impression: Probable bilateral symptomatic gynecomastia. At this time there is nothing which would warrant interventional biopsy from either breast Patient is presently on spironolactone and post scar Plan: Consider changing medications with primary care physician Close surveillance, repeat examination in 6 months Patient to follow up sooner any questions or concerns testosterone results to follow with Dr. Elizalde CC: Dr. Elizalde
== END ==
LOC: WWCWWP 09:07
PROVIDERS: ATTEND Surgery
DX: N62 Hypertrophy of breast (principal); I10 Essential (primary) hypertension; N42.89 Other specified disorders of prostate; Z88.6 Allergy status to analgesic agent; Z87.891 Personal history of nicotine dependence

== ENCOUNTER → 2022-11-06 | Outpatient (CLI) | payer MEDICARE ==
--- NOTE | 2022-11-06 13:45 | CT ---
EXAMINATION TYPE: CT chest wo con DATE OF EXAM: 11/06/2022 COMPARISON: HISTORY: lung nodule CT DLP: 1690 mGycm. Automated Exposure Control for Dose Reduction was Utilized. TECHNIQUE: CT scan of the thorax is performed without IV contrast. FINDINGS: LUNGS: The lungs are grossly clear, there is no concerning parenchymal consolidation identified. Th ere is no pleural effusion or pneumothorax seen. The tracheobronchial tree is patent. There is no interlobular septal thickening diagnostic of interstitial lung disease. There is mild central lobular emphysematous changes. Calcification of the aortic valve noted. There is a left lower lobe mass which measures 2.4 x 1.9 cm and previously measured 2.0 x 1.7 cm. Subpleural nodularity right lung apex retrospectively stable measuring 6 mm. Biapical scarring. No in terstitial edema. Within the right upper lobe there is a 5.6 mm nodule not seen with certainty on pearl or exam. An additional 4 mm nodule axial image 171 right middle lobe. There is a 3 mm nodule superior segment right lower lobe. Subsegmental areas of consolidation is difficult scarring or atelectasis. MEDIASTINUM: Lack of IV contrast is noted to limit evaluation for mediastinal and especially hilar ad enopathy. There are no definitive greater than 1 cm hilar or mediastinal lymph nodes. No cardiomega ly or pericardial effusion is seen. Aorta measures 4.3 x 4.0 cm and previously measured 4.1 x 4.0 cm. OTHER: Changes of gynecomastia. Arthropathy of the shoulder. Hypertrophic degenerative changes of the spine. The liver is enlarged measuring 25.7 cm and diffusely low in attenuation. There is thickening of the left adrenal gland which is stable compatible with hyperplasia. Small hiatal hernia. IMPRESSION: 1. Interval increase in size of left lower lobe mass measuring 2.4 x 1.9 cm and previously measuring 2 x 1.7 cm. Interval development of additional subcentimeter pulmonary nodules. 2. Minimal change in ascending aortic aneurysm measuring 4.3 x 4.0 cm. 3. Hepatomegaly with findings suggestive of of hepatic steatosis.
== END | disposition home or self-care (01) ==
LOC: RADCTMAIN 12:48
PROVIDERS: ATTEND Internal Medicine Critical Care Medicine
DX: I71.21 Aneurysm of the ascending aorta, without rupture (principal); R91.8 Other nonspecific abnormal finding of lung field; R16.0 Hepatomegaly, not elsewhere classified
CPT/HCPCS: 71250

== ENCOUNTER 2022-12-13 09:04 | Day surgery (SDC) | payer MEDICARE ==
[~2022-12-13 09:04] MED LIST changes: -ACETAMINOPHEN TAB 500 MG TAB PO PRN; +DEXAMETHASONE SOD PHOSPHATE 4 MG/ML 1 ML VIAL IV ONE; +LACTATED RINGERS 1,000 ML IV SCH; +LIDOCAINE 1% (10MG/ML) FOR IV START INTRADERMA PRN; -MELOXICAM 7.5 MG TAB PO PRN; +MIDAZOLAM 2 MG/2 ML VIAL IV PRN; -ROPIVACAINE/EPI/CLONIDINE/KET 50 ML SYRINGE MISCELLANE PRN; -TRANEXAMIC ACID 1,000 MG in SODIUM CHLORIDE 0.9% 100 ML IVPB PRN; +fentaNYL (PF) 50 MCG/ML 2 ML AMP IV PRN
--- NOTE | 2022-12-13 09:42 | CT ---
EXAMINATION TYPE: CT chest wo con DATE OF EXAM: 12/13/2022 COMPARISON: 11/07/2019 HISTORY: pre bronchial navigation CT DLP: 516.[address] of the chest was performed with lung and mediastinal window settings submitted. The la ck of contrast limits evaluation of the vascular, mediastinal and parenchymal structures including th e upper abdomen. LUNGS: Left lower lobe pulmonary nodule measures 2.1 cm. Additional nodule right upper lobe measures 4 mm. Additional nodule right upper lobe measures 6 mm image 151. No evidence for infiltrate or pleur al effusion. No volume loss appreciated. MEDIASTINUM/CHARBEL: Thoracic aorta is of normal caliber with limited evaluation given lack of contrast . The heart is not enlarged. Direct paratracheal adenopathy measuring 1.3 cm. Low right paratracheal adenopathy measuring 1.1 cm. UPPER ABDOMEN: No significant abnormality is seen. OTHER: No significant other abnormality. IMPRESSION: 1. Left lower lobe pulmonary nodule as well as a couple of scattered smaller pulmonary nodules noted .
[2022-12-13] MEDS ORDERED: ePHEDrine 50 MG/ML 1 ML VIAL ONE (10:08)
[2022-12-13] MEDS ORDERED: PROPOFOL 10 MG/ML 20 ML VIAL IV ONE (10:08)
[2022-12-13] MEDS ORDERED: GLYCOPYRROLATE 0.2 MG/ML 2 ML VIAL ONE (10:08)
[2022-12-13] MEDS ORDERED: NEOSTIGMINE 1 MG/ML 10 ML VIAL ONE (10:08)
[2022-12-13] MEDS ORDERED: MIDAZOLAM 2 MG/2 ML VIAL ONE (10:08)
[2022-12-13] MEDS ORDERED: SUCCINYLCHOLINE CHLORIDE 200 MG/10 ML VIAL IV ONE (10:08)
[2022-12-13] MEDS ORDERED: ROCURONIUM 10 MG/ML (5 ML VIAL) IV ONE (10:08)
[2022-12-13] MEDS ORDERED: fentaNYL (PF) 50 MCG/ML 2 ML AMP ONE (10:08)
[2022-12-13 10:11] LABS: Glucose,Whole Blood 96 mg/dL (70-110)
[2022-12-13 10:14] VITALS: RESP 16; TEMP 97.3
--- NOTE | 2022-12-13 12:01 | P.PCN ---
Date of Procedure: 12/13/22 Operative Findings: Preoperative Diagnosis: Right lower lobe nodule Mediastinal adenopathy Postoperative Diagnosis: Right lower lobe mass 1.2 cm Mediastinal adenopathy, 10L and 4L stations Procedure(s) Performed: Flexible bronchoscopy Robotic-assisted bronchoscopy and addition to radial ultrasound evaluation of the pulmonary mass Robotic-assisted transbronchial needle aspirate, transbronchial biopsies, transbronchial brushing of the left lower lobe mass in addition to a bronchioloalveolar lavage EBUS TBNA of a station 7 Anesthesia: GETA Surgeon: Leela Szymanski Estimated Blood Loss (ml): 0 Pathology: other Condition: stable Disposition: same day Operative Findings: A physical exam was performed. Informed consent was obtained from the patient after explaining all the risks (pneumothorax, life threatening bleeding, infection and adverse effects due to medications), benefits and alternatives to the procedure which the patient appeared to understand and so stated. The patient was connected to the monitoring devices. General anesthesia was induced and the patient was intubated by anesthesia. A final timeout was performed and the procedure confirmed by the attending staff bronchoscopist. The bronchoscope was inserted and the airway examined. The flexible bronchoscope was removed and the robotic bronchoscope was inserted. Registration was completed. I next guided the robotic bronchoscope using the navigation system into the left lower lobe posterior segment. Once in proper position, the bronchoscope was frozen. The radial EBUS probe was placed through the bronchoscope and confirmed abnormal u/s images vs normal lung. A needle was placed through the working channel and under fluoroscopic guidance, we sampled the area thought to have the nodule twice. We then used a cloud biopsy pattern with ultrasound confirmation for 2 additional passes with the needle. U/S evaluation was then used to reconfirm location. Forceps were next introduced through working channel and extended the appropriate distance and 3 transbronchial biopsies were performed using fluoroscopic guidance. The u/s probe was then reinserted to confirm location. When confirmed this process was repeated for a total of 8-10 transbronchial biopsies. After reassessment with EBUS, a brush was placed through the extendable working channel for 1 pass with fluoroscopic guidance. U/S evaluation was then used to confirm location. 40ml of saline was then instilled into the area of the lesion. The robotic bronchoscope was removed and the airway inspected with a flexible bronchoscope and 10 ml of effluent from the BAL was collected. The aspirate was bloody and ultimately declotted and based on that, the sample was discarded. Fluoroscopic check for pneumothorax was negative upon completion of the procedure. There was 0 ml blood loss with the procedure. Following that, the endobronchial ultrasound was inserted for mediastinal lymph node evaluation. A complete examination is grossly patient's was done. The patient was found to have a 16x16 mm LN . Using a 22-gauge needle, transbronchial needle aspirate of station 7 LN node was done. A total of 3 passes were obtained without any complications. Endobronchial ultrasound was removed. X-ray bronchoscope was inserted and regular suctioning was done. At the completion of the procedure, no residual secretions or bloody material within the airway. The bronchoscope was removed. The patient was extubated. FINDINGS: 1.The airways appeared normal 2 Successful navigation, ultrasonographic identification, and biopsies ofleft lower lobe pulmonary mass 3.The the radial ultrasound view was (Concentric/Eccentric)}. 4 TBNA of station 7 lymph nodes RECOMMENDATIONS: Await pathology and cytology results The referring physician will be alerted to the results when available. The patient was advised to follow up with the referring physician with the biopsy results Patient will be called with results.
--- NOTE | 2022-12-13 12:26 | FL ---
Intraoperative/procedural fluoroscopic services were provided. Total fluoroscopy time is 2 minutes 39 seconds with a total of 3 submitted images to PACS. Please see the operative/procedural note for fur ther details. DAP: 9.9387 Gycm2
--- NOTE | 2022-12-13 12:53 | XR ---
EXAMINATION TYPE: XR chest 1V DATE OF EXAM: 12/13/2022 12:17 PM CLINICAL INDICATION:Male, 67 years old with history of post bx; COMPARISON: None TECHNIQUE: XR chest 1V Frontal view of the chest. FINDINGS: Lungs/Pleura: Low lung volumes are present. There is no evidence of pleural effusion, focal consolida tion, or pneumothorax. Pulmonary vascularity: Mild pulmonary vascular congestion. Heart/mediastinum: Cardiomediastinal silhouette is prominent in size. Musculoskeletal: No acute osseous pathology. IMPRESSION: 1. No evidence of pneumothorax,. 2. Low lung volumes with a generalized hazy appearance which could represent atelectasis versus pulm onary edema correlate with serum BNP.
[2022-12-13 13:21] VITALS: BP 119/62; PULSE 53
== END 2022-12-13 13:28 | disposition home or self-care (01) ==
LOC: ORWHC2ENDO 09:04
PROVIDERS: ATTEND Internal Medicine Critical Care Medicine
DX: R91.8 Other nonspecific abnormal finding of lung field (principal); N40.0 Benign prostatic hyperplasia without lower urinary tract symptoms; I10 Essential (primary) hypertension; I71.21 Aneurysm of the ascending aorta, without rupture; Z87.891 Personal history of nicotine dependence; Z85.118 Personal history of other malignant neoplasm of bronchus and lung; Z88.8 Allergy status to other drugs, medicaments and biological substances; Z79.899 Other long term (current) drug therapy
CPT/HCPCS: 88305; 88173; 87070; 87205; 87116; 87102; 87206; 71045; 71250; 31629; 31625; 31623; 31624; 31652; J2250; J0330; J1100; J2710; J2405; J3010; J2704; S2900

== ENCOUNTER → 2023-05-16 | Outpatient (CLI) | payer MEDICARE ==
--- NOTE | 2023-05-17 08:02 | CT ---
EXAMINATION TYPE: CT chest wo con CT DLP: 497.40 mGycm, Automated exposure control for dose reduction was used. DATE OF EXAM: 05/16/2023 9:36 AM COMPARISON: CT chest 11/06/2022, and older studies CLINICAL INDICATION:Male, 67 years old with history of R91.8 ABNORMAL FINDING OF LUNG FIELD; PHH, f/u lung nodule. TECHNIQUE: Multiple axial images were obtained through the chest. Sagittal and coronal reformats were created for review. Contrast used: mL of (None if empty) Oral contrast used: (None if empty) FINDINGS: Examination limited by lack of IV contrast. LUNGS/ PLEURA: A fairly circumscribed slightly lobulated solid nodule in the left lower lobe image 45 series 4 measures 2.3 x 2 cm, and by my measurements 2.3 x 2 cm on the last exam, and 2.2 x 1.7 cm i n June 2021; allowing for differences in technique, this does not seem considerably changed and was no t hot on PET. Other scattered subcentimeter nodules remain stable. Many of these are fissural. No new or enlarging nodule is identified. No acute infiltrate, pleural effusion, or pneumothorax. AIRWAY: Central airways are patent. LOWER NECK: No significant findings. Unremarkable thyroid. MEDIASTINUM: Mediastinal nodes appear stable, with no jon enlargement by CT criteria.. HEART: Stable in size, upper normal. Poor visualization of the interventricular septum can be seen wi th anemia. No significant coronary arterial calcification. No pericardial effusion. VASCULATURE: Mild atherosclerotic calcifications of the aorta and branches. Ascending aorta shows fu siform mild aneurysmal dilatation measuring at most 4.1 x 4 cm, stable. Descending is 3 CM. Pulmonary trunk measures up to 3.2 CM. The pulmonary trunk is enlarged (>3cm), this can be seen with pulmonary hypertension. Vessels otherwise not further assessed without contrast. SOFT TISSUES/LYMPH NODES: Mild bilateral gynecomastia like changes again seen. No enlarged axillary n odes. UPPER ABDOMEN: Small sliding hernia. Similar appearance of mild bilateral perinephric stranding and m ild thickening of the adrenals without evidence of mass. Minimally decreased attenuation of the hepa tic parenchyma suggesting mild steatosis. MUSCULOSKELETAL: Moderate degenerative changes of the visualized spine again noted without evidence o f acute bony pathology. IMPRESSION: 1. Continued stable 2.3 x 2 cm nodule in the left lower lobe, very likely benign. Other scattered peralta bcentimeter nodules also appear unchanged. One may consider an additional follow-up CT in 6-12 months . 2. Stable mild ascending aortic aneurysm measuring at most 4.1 x 4 cm. 3. Otherwise stable exam.
== END | disposition home or self-care (01) ==
LOC: RADCTMAIN 09:15
PROVIDERS: ATTEND Internal Medicine Critical Care Medicine
DX: I71.21 Aneurysm of the ascending aorta, without rupture (principal); R91.8 Other nonspecific abnormal finding of lung field
CPT/HCPCS: 71250

== ENCOUNTER → 2023-06-10 | Outpatient (CLI) | payer MEDICARE ==
[2023-06-10 16:01] LABS: ALT 12 U/L (10-49); AST 20 U/L (14-35); Chol/HDL Ratio 4.03 Ratio; LDL Cholesterol,Calculated 109.5 mg/dL (0.0-131.0)
== END | disposition home or self-care (01) ==
LOC: LABWHC1 10:09
PROVIDERS: ATTEND Internal Medicine Cardiovascular Disease
DX: E78.2 Mixed hyperlipidemia (principal)
CPT/HCPCS: 36415; 80061; 84450; 84460

== ENCOUNTER → 2023-12-05 | Outpatient (CLI) | payer MEDICARE ==
--- NOTE | 2023-12-05 13:20 | CT ---
EXAMINATION TYPE: CT chest wo con CT DLP: 435.4 mGycm, Automated exposure control for dose reduction was used. DATE OF EXAM: 12/05/2023 1:00 PM COMPARISON: CT chest 05/16/2023, 12/13/2022, 11/06/2022, 11/01/2021, PET/CT 07/21/2021 CLINICAL INDICATION:Male, 68 years old with history of R91.8 ABNORMAL FINDING OF LUNG FIELD; PHH, Abn ormal lung kaminski. TECHNIQUE: Multiple axial images were obtained through the chest without IV contrast. Lack of IV or o ral contrast limits evaluation of solid and hollow organ viscera. . Coronal and sagittal reformats re viewed. FINDINGS: LUNGS/ PLEURA: No pleural effusion, pneumothorax, focal consolidation. Marginal increase in size of l eft lower lobe ovoid 2.5 x 2.0 cm pulmonary nodule (series 4, image 42), previously 2.3 x 2 cm. Previ ously 2.2 x 1.7 cm on PET/CT. Stable right midlung 5 mm solid pulmonary nodule (series 4, image 31). Stable 8 mm nodule along the right major fissure. Favored to represent an intrafissural lymph node (s eries 4, image 31). Stable left lower lobe 4 mm solid pulmonary nodule (series 4, image 38). No new p ulmonary nodules. AIRWAY: Patent and unremarkable.. HEART: Mildly prominent. Trace pericardial effusion. MEDIASTINUM: Stable mild prominent lymph nodes. VASCULATURE: Stable aneurysm dilatation of the ascending thoracic aorta measuring up to 4.2 cm. Desc ending thoracic aorta measures 2.9 cm. Aortic arch measures 3.4 cm. Minimal calcification of the aort ic arch. Dilated main pulmonary artery measuring up to 3.9 cm which can be seen in the setting of pul monary arterial hypertension. MUSCULOSKELETAL: No acute osseous abnormalities. DISH of the thoracic spine. SOFT TISSUES/LYMPH NODES: Bilateral gynecomastia. LOWER NECK: No significant findings. UPPER ABDOMEN: Tiny hiatal hernia. Similar nonspecific bilateral perinephric fat stranding. IMPRESSION: 1. Marginal increase in size of left lower lobe 2.5 x 2.0 cm pulmonary nodule, previously 2.3 x 2 cm on most recent prior CT and measured 2.2 x 1.7 cm on prior PET/CT. Recommend further evaluation with PET/CT. 2. Additional stable few pulmonary nodules. 3. Stable ascending thoracic aortic aneurysm measuring 4.2 cm. [facility], , 12/05/2023 1:17 PM
== END | disposition home or self-care (01) ==
LOC: RADCTMAIN 12:37
PROVIDERS: ATTEND Internal Medicine Critical Care Medicine
DX: R91.8 Other nonspecific abnormal finding of lung field
CPT/HCPCS: 71250

== ENCOUNTER 2024-08-27 07:13 | Day surgery (SDC) | payer MEDICARE ==
[2024-08-26 08:41] VITALS: BMI 31.5
[~2024-08-27 07:13] MED LIST changes: -DEXAMETHASONE SOD PHOSPHATE 4 MG/ML 1 ML VIAL IV ONE; -MIDAZOLAM 2 MG/2 ML VIAL IV PRN; -ONDANSETRON 4 MG/2 ML VIAL IVP ONE; -fentaNYL (PF) 50 MCG/ML 2 ML AMP IV PRN
[2024-08-27] MEDS: IV FLUID CONTINUATION 1,000 ML IV ONE (08:02)
[2024-08-27] MEDS: LACTATED RINGERS 1,000 ML IV SCH (08:03)
[2024-08-27] MEDS: DEXAMETHASONE SOD PHOSPHATE 4 MG/ML 1 ML VIAL IVP PRN (08:09)
[2024-08-27] MEDS: ONDANSETRON 4 MG/2 ML VIAL IVP PRN (08:10)
[2024-08-27] MEDS ORDERED: PROPOFOL 10 MG/ML 20 ML VIAL IV ONE (08:15)
[2024-08-27] MEDS ORDERED: ePHEDrine 50 MG/ML 1 ML VIAL ONE (08:15)
[2024-08-27] MEDS ORDERED: ROCURONIUM 10 MG/ML (5 ML VIAL) IV ONE (08:15)
[2024-08-27] MEDS ORDERED: fentaNYL (PF) 50 MCG/ML 2 ML AMP ONE (08:15)
[2024-08-27] MEDS ORDERED: MIDAZOLAM 2 MG/2 ML VIAL ONE (08:15)
[2024-08-27] MEDS ORDERED: SUGAMMADEX SODIUM 100 MG/ML SYR IV ONE (08:15)
--- NOTE | 2024-08-27 08:23 | CT ---
EXAMINATION TYPE: CT Chest wo ION protocol DATE OF EXAM: 08/27/2024 COMPARISON: Multiple CT chest with most recent 07/29/2024, PET/CT 07/21/2021 CLINICAL INDICATION: Male, 69 years old with history of ION BRONCH; [facility], FOR [facility]ON[facility] TECHNIQUE: CT scan of the thorax is performed without IV contrast. CT DLP: 584.[address] CTDI: 15.20 mGy Automated exposure control for dose reduction was used. FINDINGS: LUNGS: No focal consolidation. Similar size of left lower lobe solid pulmonary nodule measuring 2.5 x 2.0 cm (series 4, image 219). Additional few stable scattered solid pulmonary nodules prior exam inc luding a right mid lung 5.5 mm pulmonary nodule (series 4, image 176), right lower lobe 3.5 mm pulmon gia nodule (series 4, image 191), left lower lobe 3.5 mm pulmonary nodule (series 4, image 194), and a left lower lobe 4.4 mm pulmonary nodule (series 4, image 234). These are stable from most recent CT . Intrafissural lymph node along the right major fissure. There is no pleural effusion or pneumothora x seen. The tracheobronchial tree is patent. MEDIASTINUM: Lack of IV contrast is noted to limit evaluation for mediastinal and especially hilar ad enopathy. There are no definitive greater than 1 cm hilar or mediastinal lymph nodes. Stable aneurysm al dilatation of the ascending thoracic aorta measuring 4.1 cm. HEART: Mild cardiomegaly.Trace pericardial effusion. No significant coronary artery calcifications. OTHER: Bilateral gynecomastia. Small hiatal hernia. DISH of the thoracic spine. No aggressive osseous lesion identified. IMPRESSION: 1. Redemonstration of a left lower lobe solid pulmonary nodule measuring 2.5 x 2.0 cm. This is mikey rning for malignancy until proven otherwise. This has slowly grown in size from prior PET/CT. 2. Few additional scattered smaller pulmonary nodules identified. Continued follow-up is recommended . 3. Stable aneurysmal dilatation of the ascending thoracic aorta measuring 4.1 cm. [facility], , 08/27/2024 8:21 AM
[2024-08-27] MEDS: LACTATED RINGERS 1,000 ML IV ONE (09:30)
--- NOTE | 2024-08-27 09:31 | FL ---
ION BRONCH WITH CONNIE ASSIST. FL TIME 4.24 MINS DAP 29.698 [facility], , 08/27/2024 9:28 AM
[2024-08-27 09:44] VITALS: TEMP 97
--- NOTE | 2024-08-27 10:09 | P.PCN ---
Date of Procedure: 08/27/24 Operative Findings: Postoperative Diagnosis: Left lower lobe mass 2.5 cm Mediastinal adenopathy Procedure(s) Performed: Flexible bronchoscopy Robotic-assisted bronchoscopy and addition to radial ultrasound evaluation of the pulmonary mass Robotic-assisted transbronchial needle aspirate, transbronchial biopsies, transbronchial brushing of the left lower lobe mass in addition to a bronchioloalveolar lavage EBUS TBNA of a station 7 Anesthesia: SUZIA Surgeon: Leela Szymanski Estimated Blood Loss (ml): 0 Pathology: other Condition: stable Disposition: same day Operative Findings: A physical exam was performed. Informed consent was obtained from the patient after explaining all the risks (pneumothorax, life threatening bleeding, infection and adverse effects due to medications), benefits and alternatives to the procedure which the patient appeared to understand and so stated. The patient was connected to the monitoring devices. General anesthesia was induced and the patient was intubated by anesthesia. A final timeout was performed and the procedure confirmed by the attending staff bronchoscopist. The bronchoscope was inserted and the airway examined. The flexible bronchoscope was removed and the robotic bronchoscope was inserted. Registration was completed. I next guided the robotic bronchoscope using the navigation system into the left lower lobe posterior segment. Once in proper position, the bronchoscope was frozen. The radial EBUS probe was placed through the bronchoscope and confirmed abnormal u/s images vs normal lung. A needle was placed through the working channel and under fluoroscopic guidance, we sampled the area thought to have the nodule twice. We then used a cloud biopsy pattern with ultrasound confirmation for 4 additional passes with the needle. The adequacy of the samples was confirmed by rapid onsite cytology evaluation that was done by Dr. Aragon. U/S evaluation was then used to reconfirm location. Forceps were next introduced through working channel and extended the appropriate distance and 3 transbronchial biopsies were performed using fluoroscopic guidance. The u/s probe was then reinserted to confirm location. When confirmed this process was repeated for a total of 8-10 transbronchial biopsies. 40ml of saline was then instilled into the area of the lesion. The robotic bronchoscope was removed and the airway inspected with a flexible bronchoscope and 5 ml of effluent from the BAL was collected. The aspirate was bloody and ultimately declotted and based on that, the sample was discarded. Fluoroscopic check for pneumothorax was negative upon completion of the procedure. There was 0 ml blood loss with the procedure. Following that, the endobronchial ultrasound was inserted for mediastinal lymph node evaluation. A complete examination is grossly patient's was done. The patient was found to have a 12x10 mm lymph node in the subcarinal station 7.. Using a 22-gauge needle, transbronchial needle aspirate of station 7 LN node was done. A total of 4 passes were obtained without any complications. Endobronchial ultrasound was removed. X-ray bronchoscope was inserted and regular suctioning was done. At the completion of the procedure, no residual secretions or bloody material within the airway. The bronchoscope was removed. The patient was extubated. FINDINGS: 1.The airways appeared normal 2 Successful navigation, ultrasonographic identification, and biopsies of left lower lobe pulmonary mass 3.The the radial ultrasound view was (Concentric/Eccentric)}. 4 TBNA of station 7 lymph nodes RECOMMENDATIONS: Await pathology and cytology results The referring physician will be alerted to the results when available. The patient was advised to follow up with the referring physician with the biopsy results Patient will be called with results.
--- NOTE | 2024-08-27 10:09 | XR ---
EXAMINATION TYPE: XR chest 1V portable DATE OF EXAM: 08/27/2024 10:05 AM COMPARISON: 12/13/2022 CLINICAL INDICATION: Male, 69 years old with history of POST BRONCH, TECHNIQUE: XR chest 1V portable views of the chest are obtained. FINDINGS: Demonstrated are scattered senescent parenchymal change. There is no evidence for focal infiltrate. The heart is stable. Hilar and mediastinal structures are within normal limits. Degenerative changes are seen of the dorsal spine. IMPRESSION: 1. Chronic changes without evidence for acute pulmonary disease. [facility], , 08/27/2024 10:07 AM
[2024-08-27 11:08] VITALS: BP 145/78; PULSE 61; RESP 18
== END 2024-08-27 11:15 | disposition home or self-care (01) ==
LOC: ORWHC2ENDO 07:13
PROVIDERS: ATTEND Internal Medicine Critical Care Medicine
DX: R91.8 Other nonspecific abnormal finding of lung field (principal); R59.0 Localized enlarged lymph nodes; I10 Essential (primary) hypertension; N40.0 Benign prostatic hyperplasia without lower urinary tract symptoms; Z87.891 Personal history of nicotine dependence; Z79.82 Long term (current) use of aspirin; Z79.899 Other long term (current) drug therapy
CPT/HCPCS: 87798 ×3; 87496; 87498; 87529; 88108; 88305; 87502; 87634; 87070; 87205; 87116; 87102; 87206; 87635; 71045; 71250; 31628; 31629; 31624; 31652; J2250; J1100; J2405; J3010; J2704; S2900